=== PATIENT | male | born 1945 | race Caucasian/White ===

== ENCOUNTER → 2018-11-16 16:52 | Outpatient (CLI) | payer MEDICARE, OTHER, SELFPAY ==
[2018-11-16 18:07] LABS: BUN Creatinine Ratio 14.6 (6-22); Blood Urea Nitrogen 19 mg/dL (9-20); Calcium 9.9 mg/dL (8.4-10.2); Carbon Dioxide 27 mmol/L (22-32); Chloride 96 mmol/L (98-107); Estimated Glomerular Filt Rate 54.1 mL/min (>60); Glucose 94 mg/dL (80-110); HEMOLYSIS 31 (0-50); Magnesium 1.7 mg/dL (1.6-2.3); Potassium 5.1 mmol/L (3.4-5.1); Sodium 133 mmol/L (137-145)
== END ==
PROVIDERS: PCP Student in an Organized Health Care Education/Training Program; Visit Provider Student in an Organized Health Care Education/Training Program
DX: I10 Essential (primary) hypertension (principal); R25.2 Cramp and spasm; M79.2 Neuralgia and neuritis, unspecified
CPT/HCPCS: 36415; 80048; 83735

== ENCOUNTER → 2019-02-28 10:39 | Outpatient (CLI) | payer MEDICARE, OTHER, SELFPAY ==
--- NOTE | 2019-02-28 | DI.US.S_ITS ---
PROCEDURE: US SOFT TISSUE HEAD AND NECK INDICATIONS: LT CLAVICLE DEFORMITY TECHNIQUE: Real-time scanning was performed of the neck region as it intersects with the medial clavicular area on the left, with image documentation. COMPARISON: [facility], CR, XR SHOULDER 2+ VIEWS RIGHT, 12/13/2018, 9:55. [facility], CR, XR CHEST 1 VIEW, 01/31/2019, 16:20. FINDINGS: The soft tissues at the sternoclavicular joint on the left are more prominent than on the right, sharply demarcated. Presumably this represents inflammatory/degenerative change. IMPRESSION: Please correlate clinically for whether contrast enhanced MR scanning is warranted given the finding of asymmetry in the soft tissues at the sternoclavicular joints, greater on the left than the right. As noted, this most likely is inflammatory/degenerative in origin. Dictated by: Elijah Baker M.D. on 02/28/2019 at 15:20 Approved by: Elijah Baker M.D. on 02/28/2019 at 15:22
== END ==
PROVIDERS: PCP Student in an Organized Health Care Education/Training Program; Visit Provider Student in an Organized Health Care Education/Training Program
DX: M95.8 Other specified acquired deformities of musculoskeletal system (principal)
CPT/HCPCS: 76536

== ENCOUNTER → 2019-08-01 08:18 | Outpatient (CLI) | payer MEDICARE, OTHER, SELFPAY ==
--- NOTE | 2019-08-01 09:41 | DI.CT.S_ITS ---
PROCEDURE: CT ABDOMEN PELVIS W CON INDICATIONS: Elevated Lipoprotein(a) TECHNIQUE: After the administration of oral and intravenous contrast, 5 mm thick sections acquired from the diaphragms to the symphysis. 5 mm thick coronal and sagittal reformats were performed. For radiation dose reduction, the following was used: automated exposure control, adjustment of mA and/or kV according to patient size. COMPARISON: None. FINDINGS: Image quality: Excellent. ABDOMEN: Lung bases: Lung bases are clear. Heart size is normal. Solid organs: Liver is normal in size and enhancement. Diffuse fatty infiltration of the liver. Gallbladder is normal. Biliary system is non-dilated. Pancreas enhances normally. Accessory pancreatic duct noted. Pancreatic duct is mildly dilated to 5 mm. Spleen is normal in size and enhancement. No adrenal nodules. Kidneys are normal in size and enhancement, without hydronephrosis. Bilateral renal cysts. Peritoneum and bowel: Stomach, small bowel, and colon loops are normal in caliber and wall thickness. No free fluid or air. Nodes and vessels: No retroperitoneal or mesenteric adenopathy. Aorta and inferior vena cava are normal in caliber. Scattered atherosclerotic calcifications involving the abdominal and pelvic vasculature. Miscellaneous: No ventral hernias. PELVIS: Genitourinary: There is thickening and slight irregularity of the anterior and lateral urinary bladder wall. Bladder wall is thickened to 8-9 mm. Prostate gland is enlarged measuring 4.8 x 5.2 x 4.7 cm. Miscellaneous: No inguinal adenopathy. Small fat containing left inguinal hernia. Bones: No suspicious bony lesions. No vertebral body compression fractures. Spine degenerative disc disease and facet arthropathy. IMPRESSION: 1. Mild pancreatic ductal dilatation up to 5 mm. Recommend gastroenterology consultation. 2. Hepatic steatosis. 3. Anterior and lateral urinary bladder wall thickening. Neoplastic process including urothelial carcinoma cannot be excluded. Recommend correlation with urinalysis data and neurology consultation. 4. Prostate gland hypertrophy. Dictated by: Leda Morales MD, PhD on 08/01/2019 at 10:05 Approved by: Leda Morales MD, PhD on 08/01/2019 at 10:19
== END ==
PROVIDERS: PCP Student in an Organized Health Care Education/Training Program; Referring Provider Student in an Organized Health Care Education/Training Program; Visit Provider Student in an Organized Health Care Education/Training Program
DX: E78.41 Elevated Lipoprotein(a) (principal); K86.89 Other specified diseases of pancreas; K76.0 Fatty (change of) liver, not elsewhere classified; N40.0 Benign prostatic hyperplasia without lower urinary tract symptoms
CPT/HCPCS: 74177; Q9967

== ENCOUNTER → 2019-08-19 07:34 | Outpatient (CLI) | payer MEDICARE, OTHER, SELFPAY ==
--- NOTE | 2019-08-19 07:37 | DI.MRI.S_ITS ---
PROCEDURE: MR ABDOMEN WO CON INDICATIONS: Diarrhea, unspecified TECHNIQUE: Coronal HASTE through the abdomen, axial 2-D FLASH in- and [id number], and breath-hold T2 FSE with fat saturation through the biliary system and pancreas. Oblique coronal and axial thin-slice HASTE, radial thick-slab HASTE centered on the extrahepatic bile ducts. Intravenous secretin: Not requested. COMPARISON: [facility], CT, CT ABDOMEN PELVIS W CON, 08/01/2019, 9:35. FINDINGS: Image quality: Excellent. Pancreas and biliary system: Intra- and extra-hepatic biliary ducts are non dilated. Pancreas is normal in morphology, without adjacent soft tissue edema. Pancreatic duct in the head measures 5 mm, (10/50). Suspect ansa pancreatica variant anatomy, (12/24). No intraluminal filling defect. Pancreatic duct in the body and tail is normal in appearance. No pancreatic mass or cystic lesion seen. Gallbladder is unremarkable. Other solid organs: Liver is normal in size. Hepatic steatosis. Probable small simple cyst in left lobe liver. Spleen is normal in size. No adrenal nodules. Both kidneys are normal in size, without hydronephrosis. Multiple small T2 hyperintense simple cysts bilaterally. Nodes and vessels: No retroperitoneal or mesenteric adenopathy by size criteria. Aorta and inferior vena cava are normal in size. Bowel and peritoneum: Unenhanced bowel loops are normal in caliber. No free fluid. Lung bases: No basal pleural effusions. Heart size is normal. Bones and soft tissues: No ventral hernias. Bone marrow is of normal overall signal. IMPRESSION: 1. No peripancreatic fluid collection. 2. 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 Pancreatic duct in the head is mildly prominent measuring 5 mm. 3. No intraluminal filling defect. 4. No biliary ductal dilatation. Dictated by: Jc Barros M.D. on 08/19/2019 at 10:34 Approved by: Jc Barros M.D. on 08/19/2019 at 10:49
== END ==
PROVIDERS: PCP Student in an Organized Health Care Education/Training Program; Referring Provider Internal Medicine; Visit Provider Internal Medicine
DX: R19.7 Diarrhea, unspecified; R93.3 Abnormal findings on diagnostic imaging of other parts of digestive tract; K76.0 Fatty (change of) liver, not elsewhere classified; N28.1 Cyst of kidney, acquired
CPT/HCPCS: 74181

== ENCOUNTER 2020-01-03 12:27 | Emergency (ER) | payer MEDICARE, OTHER, SELFPAY ==
[2020-01-03 12:31] VITALS: BP 179/89; PULSE 67; RESP 16; TEMP 37.2; O2SAT 97; BMI 23.3
--- NOTE | 2020-01-03 12:39 | ED_ITS ---
HPI - General Adult General Chief complaint: Urogenital-Male Stated complaint: BLEEDING FROM THE GROIN Time Seen by Provider: 01/03/20 12:29 Source: patient Mode of arrival: Ambulatory Limitations: no limitations History of Present Illness HPI narrative: Patient is a 74-year-old male who is here for a groin injury. Was reported by the patient that he was carrying a TV when it fell in hit him in his groin. He is on Plavix. He did have bleeding from the tip of the penis/urethra afterwards. He did put a cold compress on the area came into the emergency department for evaluation. Related Data Allergies Allergy/AdvReac Type Severity Reaction Status Date / Time No Known Drug Allergies Allergy Verified 01/03/20 12:34 Review of Systems Constitutional Constitutional: Denies fever(s) and Denies headache(s) ENT Ears, Nose, Mouth, and Throat: Denies headache(s) Cardiovascular Cardiovascular: Denies chest pain and Denies dyspnea Respiratory Respiratory: Denies dyspnea Gastrointestinal Gastrointestinal: Denies abdominal pain Genitourinary Genitourinary: Reports genital pain and Reports other (Blood at the tip of the penis) Musculoskeletal Musculoskeletal: Denies arthralgias and Denies myalgias Integumentary/Breasts Skin/Breast: Denies rash Neurologic Neurologic: Denies behavioral changes and Denies headache(s) Psychiatric Psychiatric: Denies behavioral changes Hematologic/Lymphatic Comments: On Plavix Allergic/Immunologic Allergic/Immunologic: Denies urticaria Patient History Medical History Chronic kidney disease (Acute) Coronary artery disease (Acute) Social History marital status: lives independently: Yes Exam Initial Vital Signs Initial Vital Signs: Vital Signs Temperature 98.9 F 01/03/20 12:31 Pulse Rate 67 01/03/20 12:31 Respiratory Rate 16 01/03/20 12:31 Blood Pressure 179/89 H 01/03/20 12:31 Pulse Oximetry 97 01/03/20 12:31 Const General: cooperative and comfortable Limitations: mental status not altered HENMT Head: normal to inspection and normocephalic GI Inspection: non-distended Palpation: soft External: circumcised Penis: normal penis Meatus: meatal discharge (Blown) Scrotum: scrotum normal, no ecchymosis and no scrotal swelling Testes: normal and no testicular tenderness Skin Lesions: no lesions Rashes: no rashes Neuro General: patient alert, patient awake and patient oriented x3 Extrem General: capillary refill normal Psych Appearance: grossly normal and well kempt Course Orders Ordered: ED Orders 01/03/20 12:44 Basic Metabolic Panel Stat Complete Blood Count AUTO DIFF Stat Partial Thromboplastin Time Stat Prothrombin Time INR Stat 01/03/20 15:50 Urinalysis and Microscopic Stat Urine Culture Stat 01/03/20 16:00 Consult to Urology Stat Vital Signs Vital signs: Vital Signs - 8 hr 01/03/20 12:31 01/03/20 16:14 Temperature 98.9 F Pulse Rate 67 76 Respiratory Rate 16 14 Blood Pressure 179/89 H 155/72 H Pulse Oximetry 97 99 Medical Decision Making Lab Data Lab results reviewed: Yes I reviewed the patient's lab results. Result diagrams: 01/03/20 12:44 01/03/20 12:44 Labs: Lab Results 01/03/20 01/03/20 01/03/20 Range/Units 12:44 12:44 12:44 WBC 5.6 (4.5-11.0) X10^3/uL RBC 4.39 L (4.5-5.9) X10^6/uL Hgb 13.8 (13.5-17.5) g/dL Hct 40.9 L (41-53) % MCV 93.2 (80-100) fL MCH 31.4 (26-34) PG MCHC 33.7 (30-36) % RDW 13.0 (11.6-14.8) % Plt Count 224 (150-400) X10^3/uL Neut % (Auto) 60.7 (50-75) % Lymph % (Auto) 24.4 L (25-40) % [place] % (Auto) 11.7 (3-14) % Eos % (Auto) 2.4 (2-4) % Baso % (Auto) 0.8 (0-2) % Neut # (Auto) 3400 (5786-3411) /uL Lymph # (Auto) 1400 (9428-7165) /uL [place] # (Auto) 700 (0-900) /uL Eos # (Auto) 100 (0-450) /uL Baso # (Auto) 0 (0-100) /uL PT 11.5 (10.1-12.7) SECONDS INR 1.0 (0.9-1.3) APTT 29 (26.4-36.2) SECONDS Sodium 138 (137-145) mmol/L Potassium 4.5 (3.4-5.1) mmol/L Chloride 102 (98-107) mmol/L Carbon Dioxide 33 H (22-32) mmol/L BUN 24 H (9-20) mg/dL Creatinine 1.25 (0.66-1.25) mg/dL Estimated GFR 56.5 L (>60) mL/min BUN/Creatinine Ratio 19.2 (6-22) Glucose 104 (80-110) mg/dL Calcium 9.3 (8.4-10.2) mg/dL Urine Color Urine Appearance Urine pH (4.5-8.0) Ur Specific Melvin (1.000-1.035) Urine Protein (Negative) Urine Glucose (UA) (Negative) g/dL Urine Ketones (NEGATIVE) Urine Occult Blood (Negative) Urine Nitrate (Negative) Urine Bilirubin (NEGATIVE) Urine Urobilinogen (0.2) E.U./dL Ur Leukocyte Esterase (NEGATIVE) Urine RBC (0-5/HPF) Urine WBC (0-5/HPF) Urine Bacteria (None) Ur Culture Indicated? 01/03/20 Range/Units 15:50 WBC (4.5-11.0) X10^3/uL RBC (4.5-5.9) X10^6/uL Hgb (13.5-17.5) g/dL Hct (41-53) % MCV (80-100) fL MCH (26-34) PG MCHC (30-36) % RDW (11.6-14.8) % Plt Count (150-400) X10^3/uL Neut % (Auto) (50-75) % Lymph % (Auto) (25-40) % [place] % (Auto) (3-14) % Eos % (Auto) (2-4) % Baso % (Auto) (0-2) % Neut # (Auto) (9795-4795) /uL Lymph # (Auto) (8303-9614) /uL [place] # (Auto) (0-900) /uL Eos # (Auto) (0-450) /uL Baso # (Auto) (0-100) /uL PT (10.1-12.7) SECONDS INR (0.9-1.3) APTT (26.4-36.2) SECONDS Sodium (137-145) mmol/L Potassium (3.4-5.1) mmol/L Chloride (98-107) mmol/L Carbon Dioxide (22-32) mmol/L BUN (9-20) mg/dL Creatinine (0.66-1.25) mg/dL Estimated GFR (>60) mL/min BUN/Creatinine Ratio (6-22) Glucose (80-110) mg/dL Calcium (8.4-10.2) mg/dL Urine Color Yellow Urine Appearance Sl cloudy Urine pH 7.0 (4.5-8.0) Ur Specific Melvin 1.015 (1.000-1.035) Urine Protein Trace H (Negative) Urine Glucose (UA) Negative (Negative) g/dL Urine Ketones Negative (NEGATIVE) Urine Occult Blood 3+ H (Negative) Urine Nitrate Negative (Negative) Urine Bilirubin Negative (NEGATIVE) Urine Urobilinogen 0.2 (0.2) E.U./dL Ur Leukocyte Esterase Negative (NEGATIVE) Urine RBC >100/hpf H (0-5/HPF) Urine WBC None seen (0-5/HPF) Urine Bacteria None seen (None) Ur Culture Indicated? Cult not indicated Imaging Data Cystogram: Radiologist's Impression: [address] [address] XRay Report Signed Patient: Mario Alcantar RMR#: [id number] : 6Acct:[id number] Age/Sex: 74 / MDate of Service: 01/03/20 Loc: ED Accession Number: [id number] Procedure: FL cystogram Ordering Provider: Chandan Barbosa D.O. PROCEDURE: FL CYSTOGRAM INDICATIONS: General injury, bleeding from meatus COMPARISON: None. FINDINGS: KUB: Preprocedural psychiatric social worker supervisor film demonstrates a normal bowel gas pattern. Roger catheter is positioned in distal penile portion of the urethra. No suspicious abdominal calcifications. Bony structures are unremarkable. Bladder: Contrast material is injected into the urethra in a retrograde fashion via Roger catheter positioned in the distal penile urethra. There is extravasation of contrast material in the bulbous portion of the urethra with contrast filling the corpus spongiosum bilaterally. Roger catheter was advanced under fluoroscopic guidance into the urinary bladder. Contrast material was instilled into the that bladder via the Roger catheter. The filled bladder appears normal in contour. Early images demonstrate mild bladder wall trabeculations. No vesicoureteral reflux or contrast extravasation. Postvoid: Postvoid imaging was not performed. IMPRESSION: 1. Bulbous urethral injury. 2. No evidence of urinary bladder injury. Dictated by: Leda Morales MD, PhD on 01/03/2020 at 15:25 Approved by: Leda Morales MD, PhD on 01/03/2020 at 15:28 [facility] Narrative Medical decision making narrative: Patient did have clear urine after placement of the Roger catheter. The RUG and cystogram is concerning for a urethral injury. A Roger catheter placement is confirmed with the cystogram. I did discuss the case with Dr. Lopez with Urology who stated that patient should be sent home with a Roger catheter in place and he will see the patient in the [facility] for follow-up. I discussed this with the patient. He was given instructions with regard to the Roger catheter. He is given return precautions. He expressed understanding and agreement. Discharge Plan Departure Patient Disposition: Home Clinical Impression: Injury of male urethra Discharge Date/Time: 01/03/20 16:16 Instructions: How to Care for Your Roger Catheter -- Male Activity Restrictions/Additional Instructions: Leave the Roger catheter and an care for at as directed. I did discuss her case with Dr. lopez with the Urology Department here at the hospital. You should be receiving a phone call from them for a follow-up visit however if you do not hear from them by tomorrow afternoon please contact them at [phone]. Return to the emergency department for any new or worsening symptoms Referrals: Nazanin Moreno MD [Primary Care Provider] -
[2020-01-03 12:50] LABS: Add Manual Diff / Slide Review NO; Basophils Absolute Auto 0 /uL (0-100); Basophils Percent Auto 0.8 % (0-2); Eosinophils Absolute Auto 100 /uL (0-450); Eosinophils Percent Auto 2.4 % (2-4); Hematocrit 40.9 % (41-53); Hemoglobin 13.8 g/dL (13.5-17.5); Lymphocytes Absolute Auto 1400 /uL (1100-4500); Lymphocytes Percent Auto 24.4 % (25-40); Mean Corpuscular HGB Conc 33.7 % (30-36); Mean Corpuscular Hemoglobin 31.4 PG (26-34); Mean Corpuscular Volume 93.2 fL (80-100); Monocytes Absolute Auto 700 /uL (0-900); Monocytes Percent Auto 11.7 % (3-14); Neutrophils Absolute Auto 3400 /uL (1500-7000); Neutrophils Percent Auto 60.7 % (50-75); Platelet Count 224 X10^3/uL (150-400); Red Blood Cell Count 4.39 X10^6/uL (4.5-5.9); White Blood Cell Count 5.6 X10^3/uL (4.5-11.0)
--- NOTE | 2020-01-03 12:53 | DI.RAD.S_ITS ---
PROCEDURE: FL CYSTOGRAM INDICATIONS: General injury, bleeding from meatus COMPARISON: None. FINDINGS: KUB: Preprocedural bulb weeder film demonstrates a normal bowel gas pattern. Roger catheter is positioned in distal penile portion of the urethra. No suspicious abdominal calcifications. Bony structures are unremarkable. Bladder: Contrast material is injected into the urethra in a retrograde fashion via Roger catheter positioned in the distal penile urethra. There is extravasation of contrast material in the bulbous portion of the urethra with contrast filling the corpus spongiosum bilaterally. Roger catheter was advanced under fluoroscopic guidance into the urinary bladder. Contrast material was instilled into the that bladder via the Roger catheter. The filled bladder appears normal in contour. Early images demonstrate mild bladder wall trabeculations. No vesicoureteral reflux or contrast extravasation. Postvoid: Postvoid imaging was not performed. IMPRESSION: 1. Bulbous urethral injury. 2. No evidence of urinary bladder injury. Dictated by: Leda Morales MD, PhD on 01/03/2020 at 15:25 Approved by: Leda Morales MD, PhD on 01/03/2020 at 15:28
[2020-01-03 12:56] LABS: Prothrombin Time 11.5 SECONDS (10.1-12.7)
[2020-01-03 12:59] LABS: PTT Partial Thromboplastin Tim 29 SECONDS (26.4-36.2)
[2020-01-03 13:02] LABS: BUN Creatinine Ratio 19.2 (6-22); Blood Urea Nitrogen 24 mg/dL (9-20); Calcium 9.3 mg/dL (8.4-10.2); Carbon Dioxide 33 mmol/L (22-32); Chloride 102 mmol/L (98-107); Estimated Glomerular Filt Rate 56.5 mL/min (>60); Glucose 104 mg/dL (80-110); HEMOLYSIS < 15 (0-50); Potassium 4.5 mmol/L (3.4-5.1); Sodium 138 mmol/L (137-145)
--- NOTE | 2020-01-03 13:55 | PC.NURSE ---
cystogram performed in flouroscopy, dye injected through meatus via small catheter placed by radiology.
[2020-01-03 15:58] LABS: Bacteria Urine None Seen; WBC Urine None Seen (0-5/HPF)
[2020-01-03 16:00] LABS: Appearance Urine UA SL CLOUDY; Bilirubin Urine UA NEGATIVE (NEGATIVE); Color Urine UA YELLOW; Glucose Urine UA NEGATIVE (Negative); Ketones Urine UA NEGATIVE (NEGATIVE); Leukocyte Esterase Urine UA NEGATIVE (NEGATIVE); Nitrite Urine UA NEGATIVE (Negative); Occult Blood Urine UA 3+ (Negative); Protein Urine UA TRACE (Negative); Specific Gravity Urine UA 1.015 (1.000-1.035); Urobilinogen Urine UA 0.2 E.U./dL (0.2)
[2020-01-03 16:11] LABS: Culture Indicated Urine Cult Not Indicated; RBC Urine >100/HPF (0-5/HPF)
[2020-01-03 16:14] VITALS: BP 155/72; PULSE 76; RESP 14; O2SAT 99
--- NOTE | 2020-01-03 16:16 | PC.NURSE ---
leg bag placed on catheter. Sifuentes care explained to patient and patient verbalized understanding of sifuentes care instructions.
== END 2020-01-03 16:16 | disposition home or self-care (01) ==
PROVIDERS: Emergency Provider Emergency Medicine; PCP Student in an Organized Health Care Education/Training Program
DX: S37.30XA Unspecified injury of urethra, initial encounter (principal); W22.8XXA Striking against or struck by other objects, initial encounter; Z79.01 Long term (current) use of anticoagulants
CPT/HCPCS: 36415; 74430; 80048; 81001; 85025; 85610; 85730; 87086; 99284

== ENCOUNTER → 2020-04-06 15:07 | Outpatient (CLI) | payer MEDICARE, OTHER, SELFPAY | PROVIDERS: PCP Student in an Organized Health Care Education/Training Program; Referring Provider Specialist; Visit Provider Specialist | DX: R97.20 Elevated prostate specific antigen [PSA] (principal) | CPT/HCPCS: 36415; 84153 ==

== ENCOUNTER → 2020-05-08 16:36 | Outpatient (CLI) | payer MEDICARE, OTHER, SELFPAY ==
[2020-05-08 18:15] LABS: Thyroid Stimulating Hormone 1.18 uIU/mL (0.47-4.68)
== END ==
PROVIDERS: PCP Student in an Organized Health Care Education/Training Program; Referring Provider Student in an Organized Health Care Education/Training Program; Visit Provider Student in an Organized Health Care Education/Training Program
DX: E03.9 Hypothyroidism, unspecified (principal)
CPT/HCPCS: 36415; 84443

== ENCOUNTER → 2020-07-04 13:47 | Outpatient (CLI) | payer MEDICARE, OTHER, SELFPAY ==
[2020-07-04 15:53] LABS: Prostate Specific Antigen 4.29 ng/mL (0.10-4.00)
== END ==
PROVIDERS: PCP Student in an Organized Health Care Education/Training Program; Referring Provider Specialist; Visit Provider Specialist
DX: R97.20 Elevated prostate specific antigen [PSA] (principal)
CPT/HCPCS: 36415; 84153

== ENCOUNTER → 2020-08-30 09:28 | Outpatient (CLI) | payer MEDICARE, OTHER, SELFPAY ==
--- NOTE | 2020-08-30 09:30 | DI.MRI.S_ITS ---
PROCEDURE: MR ABDOMEN WO CON INDICATIONS: Abnormal findings on diagnostic imaging TECHNIQUE: Coronal HASTE through the abdomen, axial 2-D FLASH in- and [id number], and breath-hold T2 FSE with fat saturation through the biliary system and pancreas. Oblique coronal and axial thin-slice HASTE, radial thick-slab HASTE centered on the extrahepatic bile ducts. Intravenous secretin: Not requested. COMPARISON: [facility], MR, MR ABDOMEN WO CON, 08/19/2019, 7:53. FINDINGS: Image quality: Excellent. Pancreas and biliary system: Intra- and extra-hepatic biliary ducts are non dilated. Pancreas is normal in morphology, without adjacent soft tissue edema. The pancreatic head duct caliber is 3 mm, normal. There is no visualized evidence of a pancreatic duct morphologic anomaly at this time Pancreatic duct is normal in caliber, without developmental anomalies. Gallbladder appears normal. Other solid organs: Liver is normal in size. Several scattered hepatic cysts are again seen. Spleen is normal in size. No adrenal nodules. Both kidneys are normal in size, without hydronephrosis. Nodes and vessels: No retroperitoneal or mesenteric adenopathy by size criteria. Aorta and inferior vena cava are normal in size. Bowel and peritoneum: Unenhanced bowel loops are normal in caliber. No free fluid. Lung bases: No basal pleural effusions. Heart size is normal. Bones and soft tissues: No ventral hernias. Bone marrow is of normal overall signal. IMPRESSION: No pancreatic inflammation is seen. No common duct or pancreatic duct calculus or mass is identified. The current caliber of the main pancreatic duct at the pancreatic head is 3 mm, normal. A morphologic anomaly of the pancreatic duct in the pancreatic head and neck region is not found. Dictated by: Elijah Baker M.D. on 08/30/2020 at 13:53 Approved by: Elijah Baker M.D. on 08/30/2020 at 15:27
== END ==
PROVIDERS: PCP Student in an Organized Health Care Education/Training Program; Referring Provider Internal Medicine; Visit Provider Internal Medicine
DX: R93.89 Abnormal findings on diagnostic imaging of other specified body structures (principal)
CPT/HCPCS: 74181

== ENCOUNTER → 2021-01-15 10:36 | Outpatient (CLI) | payer MEDICARE, OTHER, SELFPAY ==
[2021-01-15 13:54] LABS: Prostate Specific Antigen 5.59 ng/mL (0.10-4.00)
== END ==
PROVIDERS: PCP Student in an Organized Health Care Education/Training Program; Referring Provider Specialist; Visit Provider Specialist
DX: N40.1 Benign prostatic hyperplasia with lower urinary tract symptoms (principal); N13.8 Other obstructive and reflux uropathy; R97.20 Elevated prostate specific antigen [PSA]
CPT/HCPCS: 36415; 84153

== ENCOUNTER → 2021-06-13 08:21 | Outpatient (CLI) | payer MEDICARE, OTHER, SELFPAY ==
[2021-06-13 11:05] LABS: Prostate Specific Antigen 7.16 ng/mL (0.10-4.00)
== END ==
PROVIDERS: PCP Student in an Organized Health Care Education/Training Program; Referring Provider Specialist; Visit Provider Specialist
DX: R97.20 Elevated prostate specific antigen [PSA] (principal)
CPT/HCPCS: 36415; 84153

== ENCOUNTER → 2021-07-03 16:44 | Outpatient (CLI) | payer MEDICARE, OTHER, SELFPAY ==
--- NOTE | 2021-07-03 16:47 | DI.MRI.S_ITS ---
PROCEDURE: MR PELIS WO/W CON INDICATIONS: BPH TECHNIQUE: Coronal HASTE, axial T1 FSE with fat saturation, 3-plane nonbreath-hold T2 FSE. After the administration of contrast, dynamic axial, delayed axial and coronal VIBE or 2-D FLASH with fat saturation through the pelvis. Optional diffusion weighted imaging and ADC may be performed. COMPARISON: None. FINDINGS: Image quality: Diffusion weighted and dynamic contrast enhanced images are diagnostic. Prostate: Gland size is 4.9 x 5.1 x 5.2 cm; ellipsoid gland volume is 67.6 mL. Lesion size(s): Lesion 1: 1.2 cm in transverse diameter. Lesion 2: 0.9 cm in transverse diameter Lesion 3: 1.6 cm in AP diameter Lesion 4: 1.2 cm in AP diameter Lesion location(s) (sector): Lesion 1: Left mid transition zone near the base Lesion 2: Right central to peripheral zone at the base Lesion 3: Left lateral transition zone at the apex. Lesion 4: Right anterior transition zone at the apex Lesion description: Lesion 1: Linear area with irregular margins. Lesion 2: Irregular shape, indistinct margin, questionable extension to the right seminal vesicle. Lesion 3: Lentiform shape, indistinct margins Lesion 4: Ovoid, partially circumscribed, partially indistinct margins T2 weighted imaging (T2WI) morphology score: Lesion 1: Four Lesion 2: Three Lesion 3: Two Lesion 4: Two Diffusion weighted imaging (DWI) morphology score: Lesion 1: Four Lesion 2: Three Lesion 3: Three Lesion 4: Three Dynamic contrast enhancement (DCE): Lesion 1: Present Lesion 2: Present Lesion 3: Present Lesion 4: Present Lesion PI-RADS score: Lesion 1: PI-RADS four Lesion 2: PI-RADS four Lesion 3: PI-RADS two Lesion 4: PI-RADS two Genitourinary system: Bladder wall thickness is diffusely increased.. Distal ureters are non distended. Bowel and peritoneum: No pathologic free pelvic fluid. Inferior colon and small bowel loops are normal in caliber. Nodes and vessels: No pelvic or inguinal adenopathy by size criteria. Iliac vessels are normal in caliber. Soft tissues: Very small fat containing left inguinal hernia. Bones: Marrow demonstrates normal overall signal, without lesions to suggest metastases. IMPRESSION: 1. There are two PI-RADS four lesions within the prostate gland near the base. The right-sided lesion probably involves the central zone in May potentially involve seminal vesicles. 2. Morphology of early BPH nodularity with some preservation of peripheral zone. 3. No pelvic adenopathy. 4. Very small fat containing left inguinal hernia. Dictated by: Amy Ni M.D. on 07/04/2021 at 10:44 Approved by: Amy Ni M.D. on 07/04/2021 at 11:24
== END ==
PROVIDERS: PCP Student in an Organized Health Care Education/Training Program; Referring Provider Specialist; Visit Provider Specialist
DX: N40.1 Benign prostatic hyperplasia with lower urinary tract symptoms (principal); N13.8 Other obstructive and reflux uropathy; N42.9 Disorder of prostate, unspecified
CPT/HCPCS: 72197; A9579

== ENCOUNTER → 2021-07-04 11:01 | Outpatient (CLI) | payer MEDICARE, OTHER, SELFPAY ==
[2021-07-04 13:07] LABS: Add Manual Diff / Slide Review NO; Basophils Absolute Auto 0 /uL (0-100); Basophils Percent Auto 0.7 % (0-2); Eosinophils Absolute Auto 100 /uL (0-450); Hematocrit 43.7 % (41-53); Hemoglobin 14.8 g/dL (13.5-17.5); Lymphocytes Absolute Auto 1300 /uL (1100-4500); Lymphocytes Percent Auto 21.3 % (25-40); Mean Corpuscular HGB Conc 33.8 % (30-36); Mean Corpuscular Hemoglobin 31.3 PG (26-34); Mean Corpuscular Volume 92.6 fL (80-100); Monocytes Absolute Auto 900 /uL (0-900); Monocytes Percent Auto 15.4 % (3-14); Neutrophils Absolute Auto 3700 /uL (1500-7000); Neutrophils Percent Auto 61.6 % (50-75); Platelet Count 339 X10^3/uL (150-400); Red Blood Cell Count 4.72 X10^6/uL (4.5-5.9); Red Cell Distribution Width 13.3 % (11.6-14.8); White Blood Cell Count 6.1 X10^3/uL (4.5-11.0)
[2021-07-04 13:25] LABS: BUN Creatinine Ratio 11.4 (6-22); Blood Urea Nitrogen 29 mg/dL (9-20); Calcium 10.2 mg/dL (8.4-10.2); Carbon Dioxide 28 mmol/L (22-32); Chloride 99 mmol/L (98-107); Cholesterol 139 mg/dL (140-199); Estimated Glomerular Filt Rate 25 mL/min (>60); Glucose 94 mg/dL (80-110); HDL Cholesterol 42 mg/dL (40-60); HEMOLYSIS < 15 (0-50); LDL Cholesterol Calculated 75 mg/dL (<100); Sodium 139 mmol/L (137-145); Triglycerides 112 mg/dL (35-150)
[2021-07-08 15:44] LABS: Gabapentin 8.4 ug/mL (4.0-16.0)
== END ==
PROVIDERS: Internal Medicine Cardiovascular Disease; PCP Student in an Organized Health Care Education/Training Program; Referring Provider Specialist; Visit Provider Specialist
DX: E78.5 Hyperlipidemia, unspecified (principal); G50.1 Atypical facial pain
CPT/HCPCS: 36415; 80048; 80061; 80171; 85025

== ENCOUNTER → 2021-07-18 13:19 | Outpatient (CLI) | payer MEDICARE, OTHER, SELFPAY ==
[2021-07-18 15:35] LABS: Hematocrit 36.7 % (41-53); Hemoglobin 12.9 g/dL (13.5-17.5); Mean Corpuscular HGB Conc 35.1 % (30-36); Mean Corpuscular Hemoglobin 32.2 PG (26-34); Mean Corpuscular Volume 91.7 fL (80-100); Platelet Count 241 X10^3/uL (150-400); Red Cell Distribution Width 13.3 % (11.6-14.8); White Blood Cell Count 8.1 X10^3/uL (4.5-11.0)
[2021-07-18 15:46] LABS: Alanine Aminotransferase 46 IU/L (<50); Albumin 3.8 g/dL (3.5-5.0); Albumin Globulin Ratio 1.5 (1.0-2.8); Alkaline Phosphatase 102 U/L (38-126); Aspartate Aminotransferase 47 IU/L (17-59); BUN Creatinine Ratio 14.1 (6-22); Bilirubin Total 0.5 mg/dL (0.2-1.3); Blood Urea Nitrogen 22 mg/dL (9-20); Calcium 8.9 mg/dL (8.4-10.2); Carbon Dioxide 29 mmol/L (22-32); Chloride 99 mmol/L (98-107); Cholesterol 122 mg/dL (140-199); Estimated Glomerular Filt Rate 46 mL/min (>60); Globulin 2.6 g/dL (1.7-4.1); Glucose 92 mg/dL (80-110); HDL Cholesterol 45 mg/dL (40-60); HEMOLYSIS < 15 (0-50); LDL Cholesterol Calculated 50 mg/dL (<100); Magnesium 1.8 mg/dL (1.6-2.3); Potassium 4.1 mmol/L (3.4-5.1); Sodium 134 mmol/L (137-145); Total Protein 6.4 g/dL (6.3-8.2); Triglycerides 136 mg/dL (35-150)
[2021-07-18 15:57] LABS: LDL Cholesterol Direct 57 mg/dL (<100)
[2021-07-18 16:15] LABS: Prostate Specific Antigen 4.89 ng/mL (0.10-4.00)
[2021-07-18 16:50] LABS: TSH w/ Reflex to FT4 0.08 uIU/mL (0.47-4.68)
[2021-07-18 17:16] LABS: Free T4, Direct Thyroxine 1.42 ng/dL (0.78-2.19)
== END ==
PROVIDERS: Specialist; PCP Student in an Organized Health Care Education/Training Program; Referring Provider Student in an Organized Health Care Education/Training Program; Visit Provider Student in an Organized Health Care Education/Training Program
DX: N18.31 Chronic kidney disease, stage 3a (principal); E78.5 Hyperlipidemia, unspecified; I10 Essential (primary) hypertension; E03.9 Hypothyroidism, unspecified; Z00.00 Encounter for general adult medical examination without abnormal findings; R97.20 Elevated prostate specific antigen [PSA]
CPT/HCPCS: 36415; 80053; 80061; 83721; 83735; 84153; 84439; 84443; 85025; 85027

== ENCOUNTER 2021-08-13 15:27 | Emergency (ER) | payer MEDICARE, OTHER, SELFPAY ==
[2021-08-13] VITALS (18 sets, daily range): BP systolic 103–207; BP diastolic 56–111; PULSE 61–90; RESP 12–26; O2SAT 89–98
[2021-08-13] MEDS: diphenhydrAMINE 50 MG/ML VIAL (15:30)
[2021-08-13] MEDS: methylPREDNISolone 125 MG/2 ML VIAL (15:30)
[2021-08-13] MEDS: EPINEPHrine 1 MG/ML (15:30)
--- NOTE | 2021-08-13 16:31 | PC.NURSE ---
pt was having airway swelling after being stung by a bee.
[2021-08-13] MEDS: SODIUM CHLORIDE 0.9% 1,000 ML 1000 ML IV (16:36)
[2021-08-13] MEDS: FAMOTIDINE 20 MG/2 ML VIAL IV (16:36)
--- NOTE | 2021-08-13 16:40 | ED.ALLEREA ---
HPI - Allergic Reaction <Tayler Hilton MD - Last Filed: 08/23/21 19:12> General Chief complaint: Allergic Reaction Stated complaint: STUNG BY YELLOWJACKET THROAT IS CLOSING Time Seen by Provider: 08/13/21 15:33 Source: patient Mode of arrival: Ambulatory History of Present Illness HPI narrative: 76-year-old gentleman with a history of coronary artery disease, hypertension, hypothyroidism, peripheral neuropathy was stung by a yellow jacket on the tip of his left ear this afternoon and within 2 hours was having significant tightening of his throat, difficulty breathing and feeling the symptoms were significantly worsening. Thinks his last episode of being stung was 40-50 years ago and at that time apparently had stepped into a nest and had multiple stings over his lower extremities. He has never had an allergic reaction such as this previously. He is not having any rash and does not complain of lip or tongue swelling. He has not recently been ill with fevers, cough, chills, vomiting diarrhea or abdominal pain. He currently is not complaining of chest pain or palpitations he is noting chest tightness and feels that his throat is closing. He is able to speak in full sentences and is completely cognitively appropriate at this time. Related Data Home Medications Medication Instructions Recorded Confirmed amlodipine 5 mg tablet 5 mg PO DAILY 01/09/20 08/06/21 aspirin 81 mg tablet,delayed 81 mg PO DAILY 01/09/20 08/06/21 release (Adult Aspirin Regimen) cholecalciferol (vitamin D3) 1,250 1,250 mcg PO QMONTH 01/09/20 08/06/21 mcg (50,000 unit) capsule coenzyme Q10 300 mg capsule (Co 300 mg PO DAILY 01/09/20 08/06/21 Q-10) diphenoxylate-atropine 2.5 1 tab PO DAILY 01/09/20 08/06/21 mg-0.025 mg tablet (Lomotil) gabapentin 600 mg tablet 600 mg PO DAILY 01/09/20 08/06/21 magnesium oxide 400 mg PO DAILY 01/09/20 08/06/21 ikuyceow-qqt-pdgqm acid 300 1 tab PO DAILY 01/09/20 08/06/21 mcg-lycopene 600 mcg-lutein 300 mcg tablet (Centrum Silver Men) paroxetine HCl 25 mg 25 mg PO DAILY 01/09/20 08/06/21 tablet,extended release 24 hr rosuvastatin 40 mg tablet 40 mg PO DAILY 01/09/20 08/06/21 levothyroxine 25 mcg tablet 12.5 mcg PO .every other day 08/06/21 08/06/21 Previous Rx's Medication Instructions Recorded tamsulosin 0.4 mg capsule 0.4 mg PO BEDTIME #90 caps 04/12/20 epinephrine 0.3 mg/0.3 mL 0.3 mg (0.3 mL) IM Q5-15M PRN 08/13/21 injection, auto-injector anaphylaxis #2 ea prednisone 10 mg tablet 10 mg PO DAILY #5 tabs 08/13/21 ciprofloxacin HCl 500 mg tablet 500 mg PO BID #6 tabs 08/23/21 Allergies Allergy/AdvReac Type Severity Reaction Status Date / Time epinephrine Allergy Verified 08/06/21 10:45 Review of Systems <Tayler Hilton MD - Last Filed: 08/23/21 19:12> Review of Systems Narrative: Remainder of complete review of systems is otherwise unremarkable except for that included in the HPI. Patient History <Tayler Hilton MD - Last Filed: 08/23/21 19:12> Medical History Arthritis BPH w urinary obs/LUTS Chronic kidney disease Coronary artery disease Elevated PSA Heart attack HTN (hypertension) Neurological disease Skin cancer Surgical History H/O circumcision H/O prostate biopsy History of coronary artery stent placement History of liver biopsy Previous back surgery Family History Grandfather Cancer Social History marital status: number of children: 4 lives independently: Yes Smoking Status: Never smoker alcohol intake: current Smoking Status: Never smoker Exam <Tayler Hilton MD - Last Filed: 08/23/21 19:12> Initial Vital Signs Initial Vital Signs: Vital Signs Pulse Rate 82 08/13/21 15:37 Respiratory Rate 18 08/13/21 15:37 Pulse Oximetry 98 08/13/21 15:37 General: Pale, able to speak slightly hoarse alert and appropriate. Well-nourished well-developed HEENT: Moist mucous membranes, normal sclera with reactive pupils, no tongue or lip swelling appreciated. Tip of his left ear slightly erythematous at the site of yellow jacket sting Neck: No JVD, supple Respiratory: Lungs with no audible wheeze, full and symmetrical air movement he does appear to be working harder to breathe in continues to complain of swelling in his throat Cardiac: Regular rate and rhythm no murmurs no bruits Abdomen: Soft, nontender, good bowel tones, no flank pain Skin: Pale and dry, no rashes Neurologic: Grossly neurologically intact with no obvious asymmetries or abnormalities Extremities: No trauma, well perfused Psych: Cooperative, appropriate insight and affect <Sade Ortiz DO - Last Filed: 08/13/21 19:27> Initial Vital Signs Initial Vital Signs: Vital Signs Pulse Rate 82 08/13/21 15:37 Respiratory Rate 18 08/13/21 15:37 Pulse Oximetry 98 08/13/21 15:37 Course <Tayler Hilton MD - Last Filed: 08/23/21 19:12> Orders Ordered: Discontinued Medications Diphenhydramine HCl (Diphenhydramine 50 Mg/Ml Vial) 50 mg IV NOW ONE Stop: 08/13/21 15:34 Last Admin: 08/13/21 16:23 Dose: Not Given Documented By: CTS Epinephrine HCl (Epinephrine 1 Mg/Ml) 0.3 mg IM NOW ONE Stop: 08/13/21 15:34 Last Admin: 08/13/21 16:23 Dose: Not Given Documented By: CTS Famotidine (Famotidine 20 Mg/2 Ml Vial) 20 mg IV NOW JOYCE Last Admin: 08/13/21 16:36 Dose: 20 mg Documented By: RLS Sodium Chloride (Normal Saline 0.9%) 1,000 mls @ 1,000 mls/hr IV BOLUS ONE Stop: 08/13/21 16:32 Last Infusion: 08/13/21 17:38 Dose: 0 mls/hr Documented By: Admin: 08/13/21 16:36 Dose: 1,000 mls/hr Documented By: RLS Methylprednisolone (Methylprednisolone 125 Mg/2 Ml Vial) 125 mg IV NOW ONE Stop: 08/13/21 15:34 Last Admin: 08/13/21 16:23 Dose: Not Given Documented By: CTS Vital Signs Vital signs: Vital Signs - 8 hr 08/13/21 15:37 08/13/21 15:38 08/13/21 15:38 Pulse Rate 82 76 Respiratory Rate 18 23 Blood Pressure 185/111 H Pulse Oximetry 98 96 08/13/21 15:41 08/13/21 15:41 08/13/21 15:45 Pulse Rate 81 Respiratory Rate 25 H Blood Pressure 207/89 H 184/78 H Pulse Oximetry 97 08/13/21 15:45 08/13/21 16:00 08/13/21 16:00 Pulse Rate 90 72 Respiratory Rate 26 H 15 Blood Pressure 127/71 Pulse Oximetry 95 92 08/13/21 16:15 08/13/21 16:15 08/13/21 16:30 Pulse Rate 72 Respiratory Rate 15 Blood Pressure 129/64 118/65 Pulse Oximetry 92 08/13/21 16:30 08/13/21 16:45 08/13/21 16:45 Pulse Rate 77 71 Respiratory Rate 16 15 Blood Pressure 118/64 Pulse Oximetry 91 91 08/13/21 17:00 08/13/21 17:00 08/13/21 17:15 Pulse Rate 72 Respiratory Rate 14 Blood Pressure 103/65 114/58 L Pulse Oximetry 91 08/13/21 17:15 08/13/21 17:30 08/13/21 17:30 Pulse Rate 77 69 Respiratory Rate 13 13 Blood Pressure 108/58 L Pulse Oximetry 92 91 08/13/21 17:45 08/13/21 17:45 08/13/21 18:00 Pulse Rate 68 Respiratory Rate 14 Blood Pressure 113/67 115/68 Pulse Oximetry 89 L 08/13/21 18:00 08/13/21 18:15 08/13/21 18:15 Pulse Rate 66 64 Respiratory Rate 13 12 Blood Pressure 116/67 Pulse Oximetry 90 L 92 08/13/21 18:30 08/13/21 18:31 08/13/21 18:31 Pulse Rate 65 64 Respiratory Rate 15 13 Blood Pressure 125/56 L Pulse Oximetry 90 L 92 08/13/21 18:45 08/13/21 18:45 08/13/21 19:00 Pulse Rate 63 Respiratory Rate 13 Blood Pressure 109/58 L 110/66 Pulse Oximetry 93 08/13/21 19:00 Pulse Rate 61 Respiratory Rate 12 Blood Pressure Pulse Oximetry 91 <Sade Ortiz, DO - Last Filed: 08/13/21 19:27> Orders Ordered: Discontinued Medications Diphenhydramine HCl (Diphenhydramine 50 Mg/Ml Vial) 50 mg IV NOW ONE Stop: 08/13/21 15:34 Last Admin: 08/13/21 16:23 Dose: Not Given Documented By: CTS Epinephrine HCl (Epinephrine 1 Mg/Ml) 0.3 mg IM NOW ONE Stop: 08/13/21 15:34 Last Admin: 08/13/21 16:23 Dose: Not Given Documented By: CTS Famotidine (Famotidine 20 Mg/2 Ml Vial) 20 mg IV NOW JOYCE Last Admin: 08/13/21 16:36 Dose: 20 mg Documented By: NATALIIA Sodium Chloride (Normal Saline 0.9%) 1,000 mls @ 1,000 mls/hr IV BOLUS ONE Stop: 08/13/21 16:32 Last Infusion: 08/13/21 17:38 Dose: 0 mls/hr Documented By: Admin: 08/13/21 16:36 Dose: 1,000 mls/hr Documented By: NATALIIA Methylprednisolone (Methylprednisolone 125 Mg/2 Ml Vial) 125 mg IV NOW ONE Stop: 08/13/21 15:34 Last Admin: 08/13/21 16:23 Dose: Not Given Documented By: DONELL Vital Signs Vital signs: Vital Signs - 8 hr 08/13/21 15:37 08/13/21 15:38 08/13/21 15:38 Pulse Rate 82 76 Respiratory Rate 18 23 Blood Pressure 185/111 H Pulse Oximetry 98 96 08/13/21 15:41 08/13/21 15:41 08/13/21 15:45 Pulse Rate 81 Respiratory Rate 25 H Blood Pressure 207/89 H 184/78 H Pulse Oximetry 97 08/13/21 15:45 08/13/21 16:00 08/13/21 16:00 Pulse Rate 90 72 Respiratory Rate 26 H 15 Blood Pressure 127/71 Pulse Oximetry 95 92 08/13/21 16:15 08/13/21 16:15 08/13/21 16:30 Pulse Rate 72 Respiratory Rate 15 Blood Pressure 129/64 118/65 Pulse Oximetry 92 08/13/21 16:30 08/13/21 16:45 08/13/21 16:45 Pulse Rate 77 71 Respiratory Rate 16 15 Blood Pressure 118/64 Pulse Oximetry 91 91 08/13/21 17:00 08/13/21 17:00 08/13/21 17:15 Pulse Rate 72 Respiratory Rate 14 Blood Pressure 103/65 114/58 L Pulse Oximetry 91 08/13/21 17:15 08/13/21 17:30 08/13/21 17:30 Pulse Rate 77 69 Respiratory Rate 13 13 Blood Pressure 108/58 L Pulse Oximetry 92 91 08/13/21 17:45 08/13/21 17:45 08/13/21 18:00 Pulse Rate 68 Respiratory Rate 14 Blood Pressure 113/67 115/68 Pulse Oximetry 89 L 08/13/21 18:00 08/13/21 18:15 08/13/21 18:15 Pulse Rate 66 64 Respiratory Rate 13 12 Blood Pressure 116/67 Pulse Oximetry 90 L 92 08/13/21 18:30 08/13/21 18:31 08/13/21 18:31 Pulse Rate 65 64 Respiratory Rate 15 13 Blood Pressure 125/56 L Pulse Oximetry 90 L 92 08/13/21 18:45 08/13/21 18:45 08/13/21 19:00 Pulse Rate 63 Respiratory Rate 13 Blood Pressure 109/58 L 110/66 Pulse Oximetry 93 08/13/21 19:00 Pulse Rate 61 Respiratory Rate 12 Blood Pressure Pulse Oximetry 91 [facility] - Allergic Reaction <Tayler Hilton MD - Last Filed: 08/23/21 19:12> [facility] Narrative Medical decision making narrative: Patient with yellow jacket sting to the left ear but developing anaphylactic reaction. On arrival he is given 3 mg of subcu epinephrine, IV Solu-Medrol, Benadryl, Pepcid with fairly rapid improvement of symptoms. 445 symptoms continue to improve, not complaining of throat tightness, no wheezing appreciated, much better perfusion of his lips. Will continue to anticipate at least a 4 hour observation in the emergency department after the epinephrine and is given. <Sade Ortiz DO - Last Filed: 08/13/21 19:27> [facility] Narrative Medical decision making narrative: Patient with yellow jacket sting to the left ear but developing anaphylactic reaction. On arrival he is given 3 mg of subcu epinephrine, IV Solu-Medrol, Benadryl, Pepcid with fairly rapid improvement of symptoms. 445 symptoms continue to improve, not complaining of throat tightness, no wheezing appreciated, much better perfusion of his lips. Will continue to anticipate at least a 4 hour observation in the emergency department after the epinephrine and is given. Patient signed out to me by Dr. Hilton. Have seen evaluated patient myself. He has no respiratory distress overall feeling much better. He had a nice nap from Benadryl. Epinephrine prescription has been sent to local pharmacy. At this time no need for any further intervention. Critical Care Time <Tayler Hilton MD - Last Filed: 08/23/21 19:12> Critical Care Time Critical Care Time: Yes Total Critical Care Time: 33 Attestation: Critical care time is separate from other billable procedures. There is a high probability of a significant, sudden or life-threatening deterioration that requires my full and direct attention, intervention and personal management. This critical care time includes consultation with family and other consulting doctors, review of records, and interpretation of data from labs, EKGs and imaging as well as managements of anaphylaxis Discharge Plan Departure Patient Disposition: Home Clinical Impression: Anaphylaxis Instructions: DI for Anaphylaxis Activity Restrictions/Additional Instructions: Thank you for coming in today You did have an anaphylactic reaction to your yellow jacket sting today. Your given epinephrine, Solu-Medrol(a steroid), Benadryl and Pepcid along with fluids and observed in the emergency department for 4 hours. You have improved nicely. I am going to suggest that you take a small dose of steroid daily for the next 5 days to prevent recurrent symptoms. Because of your prostate history, [id number] antihistamines should most likely be avoided to avoid acute urinary retention. 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 If you find that you are getting worse or develop any new symptoms, please feel free to return to the emergency department for further evaluation. Prescriptions: New epinephrine 0.3 mg/0.3 mL auto-injector 0.3 mg IM Q5-15M PRN (Reason: anaphylaxis) Qty: 2 0RF Rx Instructions: do not exceed 3 doses per episode prednisone 10 mg tablet 10 mg PO DAILY Qty: 5 0RF No Action ciprofloxacin HCl 500 mg tablet 500 mg PO BID Qty: 6 0RF Rx Instructions: Start taking the morning of August 28, 2021 and continue taking until bottle is empty. Centrum Silver Men 300-600-300 mcg tablet 1 tab PO DAILY Co Q-10 300 mg capsule 300 mg PO DAILY cholecalciferol (vitamin D3) 1,250 mcg (50,000 unit) capsule 1,250 mcg PO QMONTH aspirin [Adult Aspirin Regimen] 81 mg tablet,delayed release (DR/EC) 81 mg PO DAILY amlodipine 5 mg tablet 5 mg PO DAILY paroxetine HCl 25 mg tablet extended release 24 hr 25 mg PO DAILY diphenoxylate-atropine [Lomotil] 2.5-0.025 mg tablet 1 tab PO DAILY gabapentin 600 mg tablet 600 mg PO DAILY magnesium oxide 400 mg magnesium capsule 400 mg PO DAILY rosuvastatin 40 mg tablet 40 mg PO DAILY levothyroxine 25 mcg tablet 12.5 mcg PO .every other day tamsulosin 0.4 mg capsule 0.4 mg PO BEDTIME Qty: 90 3RF Referrals: Nazanin Moreno MD [Primary Care Provider] - Visit Report Forms: Patient Portal/API
== END 2021-08-13 19:41 | disposition home or self-care (01) ==
PROVIDERS: Emergency Provider Emergency Medicine; PCP Student in an Organized Health Care Education/Training Program
DX: T63.441A Toxic effect of venom of bees, accidental (unintentional), initial encounter (principal); R60.9 Edema, unspecified
CPT/HCPCS: 36415; 96361; 96374; 96375; 99284; 99291; J0171; J1200; J2930

== ENCOUNTER → 2021-08-16 10:20 | Outpatient (CLI) | payer MEDICARE, OTHER, SELFPAY ==
[2021-08-16 10:54] LABS: Add Manual Diff / Slide Review NO; Basophils Absolute Auto 0 /uL (0-100); Basophils Percent Auto 0.5 % (0-2); Eosinophils Absolute Auto 100 /uL (0-450); Eosinophils Percent Auto 0.6 % (2-4); Hematocrit 38.6 % (41-53); Hemoglobin 13.2 g/dL (13.5-17.5); Lymphocytes Absolute Auto 2100 /uL (1100-4500); Mean Corpuscular HGB Conc 34.2 % (30-36); Mean Corpuscular Hemoglobin 32.2 PG (26-34); Mean Corpuscular Volume 94.1 fL (80-100); Monocytes Absolute Auto 800 /uL (0-900); Monocytes Percent Auto 9.6 % (3-14); Neutrophils Absolute Auto 5400 /uL (1500-7000); Neutrophils Percent Auto 64.3 % (50-75); Platelet Count 225 X10^3/uL (150-400); Red Cell Distribution Width 14.2 % (11.6-14.8); White Blood Cell Count 8.4 X10^3/uL (4.5-11.0)
[2021-08-16 12:13] LABS: Appearance Urine UA CLEAR; Bilirubin Urine UA NEGATIVE (NEGATIVE); Color Urine UA YELLOW; Glucose Urine UA NEGATIVE (Negative); Ketones Urine UA NEGATIVE (NEGATIVE); Leukocyte Esterase Urine UA NEGATIVE (NEGATIVE); Nitrite Urine UA NEGATIVE (Negative); Occult Blood Urine UA 1+ (Negative); Protein Urine UA 2+ (Negative); Specific Gravity Urine UA 1.015 (1.000-1.035); Urobilinogen Urine UA 0.2 E.U./dL (0.2)
[2021-08-16 12:41] LABS: Bacteria Urine None Seen; Culture Indicated Urine Cult Not Indicated; RBC Urine 0-1/HPF (0-5/HPF); Squamous Epithelial Cell Urine 0-1 /HPF (0-5/HPF); WBC Urine 0-1/HPF (0-5/HPF)
== END ==
PROVIDERS: PCP Student in an Organized Health Care Education/Training Program; Referring Provider Internal Medicine Nephrology; Visit Provider Internal Medicine Nephrology
DX: M54.50 Low back pain, unspecified (principal)
CPT/HCPCS: 36415; 81001; 85025

== ENCOUNTER → 2021-10-02 09:38 | Outpatient (CLI) | payer MEDICARE, OTHER, SELFPAY ==
[2021-10-02 11:27] LABS: Prostate Specific Antigen 7.45 ng/mL (0.10-4.00)
== END ==
PROVIDERS: PCP Family Medicine; Referring Provider Specialist; Visit Provider Specialist
DX: R97.20 Elevated prostate specific antigen [PSA] (principal)
CPT/HCPCS: 36415; 84153

== ENCOUNTER → 2021-11-21 15:58 | Outpatient (CLI) | payer MEDICARE, OTHER, SELFPAY ==
--- NOTE | 2021-11-21 | DI.RAD.S_ITS ---
PROCEDURE: XR FOOT LT MIN 3V INDICATIONS: lateral foot pain TECHNIQUE: 3 views of the foot were acquired. COMPARISON: None. FINDINGS: Bones: No fractures or dislocations. Well-defined plantar and dorsal calcaneal enthesophytes are seen. Mild left foot osteoarthritic changes are seen. No suspicious bony lesions. Soft tissues: No tibiotalar joint effusion. Achilles tendon appears normal. IMPRESSION: Normal alignment of left foot. No fracture or dislocation. Mild left foot joint osteoarthritis. Well-defined calcaneal enthesophytes. Dictated by: Del Melissa M.D. on 11/21/2021 at 17:07 Approved by: Del Melissa M.D. on 11/21/2021 at 17:07
== END ==
PROVIDERS: PCP Family Medicine; Referring Provider Family Medicine; Visit Provider Family Medicine
DX: M19.072 Primary osteoarthritis, left ankle and foot (principal); M77.32 Calcaneal spur, left foot; M79.672 Pain in left foot
CPT/HCPCS: 73630

== ENCOUNTER → 2021-11-22 14:11 | Outpatient (CLI) | payer MEDICARE, OTHER, SELFPAY | PROVIDERS: PCP Family Medicine; Referring Provider Specialist; Visit Provider Specialist | DX: R97.20 Elevated prostate specific antigen [PSA] (principal) | CPT/HCPCS: 36415; 84153; 84154 ==

== ENCOUNTER → 2022-05-26 14:44 | Outpatient (CLI) | payer MEDICARE, OTHER, SELFPAY ==
--- NOTE | 2022-05-26 | DI.RAD.S_ITS ---
PROCEDURE: XR CHEST 2V INDICATIONS: shortness of breath TECHNIQUE: 2 views of the chest were acquired. COMPARISON: None. FINDINGS: Surgical changes and devices: None. Lungs and pleura: Increased pulmonary markings and small right effusion. Mediastinum: Mediastinal contours are normal. Heart size is enlarged. Bones and chest wall: No suspicious bony abnormalities. Soft tissues appear unremarkable. IMPRESSION: Suspect mild pulmonary edema, given increased pulmonary markings and small right effusion. Dictated by: Ton Haro M.D. on 05/26/2022 at 16:36 Approved by: Ton Haro M.D. on 05/26/2022 at 16:37
[2022-05-26 16:35] LABS: Blood Urea Nitrogen 17 mg/dL (9-20); Carbon Dioxide 27 mmol/L (22-32); Chloride 104 mmol/L (98-107); Estimated Glomerular Filt Rate 56 mL/min (>60); Glucose 63 mg/dL (80-110); HEMOLYSIS < 15 (0-50); Sodium 141 mmol/L (137-145)
[2022-05-26 16:42] LABS: NT-proBNP (BNP-Adult 18+) 2020 pg/mL (<450)
== END ==
PROVIDERS: Specialist; PCP Family Medicine; Referring Provider Internal Medicine Cardiovascular Disease; Visit Provider Internal Medicine Cardiovascular Disease
DX: R06.02 Shortness of breath (principal); J90 Pleural effusion, not elsewhere classified; R97.20 Elevated prostate specific antigen [PSA]
CPT/HCPCS: 36415; 71046; 80048; 83880; 84153

== ENCOUNTER → 2022-06-11 12:17 | Outpatient (CLI) | payer MEDICARE, OTHER, SELFPAY ==
[2022-06-11 13:35] LABS: BUN Creatinine Ratio 16.1 (6-22); Blood Urea Nitrogen 22 mg/dL (9-20); Calcium 9.2 mg/dL (8.4-10.2); Carbon Dioxide 28 mmol/L (22-32); Chloride 103 mmol/L (98-107); Estimated Glomerular Filt Rate 53 mL/min (>60); Glucose 91 mg/dL (80-110); HEMOLYSIS < 15 (0-50); Potassium 5.1 mmol/L (3.4-5.1); Sodium 138 mmol/L (137-145)
[2022-06-11 13:45] LABS: NT-proBNP (BNP-Adult 18+) 996 pg/mL (<450)
== END ==
PROVIDERS: PCP Family Medicine; Referring Provider Internal Medicine Cardiovascular Disease; Visit Provider Internal Medicine Cardiovascular Disease
DX: R06.02 Shortness of breath (principal); I10 Essential (primary) hypertension
CPT/HCPCS: 36415; 80048; 83880

== ENCOUNTER → 2022-08-01 15:19 | Outpatient (CLI) | payer MEDICARE, OTHER, SELFPAY ==
[2022-08-01 15:47] LABS: Blood Urea Nitrogen 23 mg/dL (9-20); Calcium 9.4 mg/dL (8.4-10.2); Carbon Dioxide 32 mmol/L (22-32); Chloride 102 mmol/L (98-107); Estimated Glomerular Filt Rate 54 mL/min (>60); Glucose 101 mg/dL (80-110); HEMOLYSIS 16 (0-50); Potassium 5.3 mmol/L (3.4-5.1); Sodium 138 mmol/L (137-145)
[2022-08-01 15:56] LABS: NT-proBNP (BNP-Adult 18+) 1210 pg/mL (<450)
== END ==
PROVIDERS: PCP Family Medicine; Referring Provider Internal Medicine Cardiovascular Disease; Visit Provider Internal Medicine Cardiovascular Disease
DX: R06.02 Shortness of breath (principal); I10 Essential (primary) hypertension
CPT/HCPCS: 36415; 80048; 83880

== ENCOUNTER → 2022-08-11 14:17 | Outpatient (CLI) | payer MEDICARE, OTHER, SELFPAY ==
[2022-08-11 15:44] LABS: BUN Creatinine Ratio 21.2 (6-22); Blood Urea Nitrogen 33 mg/dL (9-20); Calcium 9.3 mg/dL (8.4-10.2); Carbon Dioxide 29 mmol/L (22-32); Chloride 97 mmol/L (98-107); Estimated Glomerular Filt Rate 45 mL/min (>60); Glucose 105 mg/dL (80-110); HEMOLYSIS < 15 (0-50); Potassium 5.3 mmol/L (3.4-5.1); Sodium 133 mmol/L (137-145)
== END ==
PROVIDERS: PCP Family Medicine; Referring Provider Internal Medicine Cardiovascular Disease; Visit Provider Internal Medicine Cardiovascular Disease
DX: N18.30 Chronic kidney disease, stage 3 unspecified (principal)
CPT/HCPCS: 36415; 80048

== ENCOUNTER → 2022-09-30 09:59 | Outpatient (CLI) | payer MEDICARE, OTHER, SELFPAY ==
--- NOTE | 2022-09-30 | DI.US.S_ITS ---
PROCEDURE: US SCROTUM INDICATIONS: PAIN AND SWELLING IN RIGHT TESTICLE TECHNIQUE: Real-time scanning was performed of the scrotum and testicles, with image documentation. Color and pulse Doppler interrogation was performed of both testicles. COMPARISON: None. FINDINGS: Right: Testicle is normal in size at 3.1 x 2.6 x 3.6 cm, and homogenous in echotexture. The epididymis appears enlarged and heterogeneous with increased vascularity on Doppler images. A hydrocele is present. No varicocele identified. Overlying scrotal skin is normal in thickness. Left: Testicle is normal in size at 3.0 x 2.3 x 2.6 cm, and homogeneous in echotexture. Epididymis is normal in overall size. 7 mm cyst at the epididymal tail, 6 mm epididymal head cyst. No varicocele. Small hydrocele. Overlying scrotal skin is normal in thickness. Doppler: Color and pulse Doppler demonstrate normal and symmetric arterial flow in both testicles. IMPRESSION: 1. Findings compatible with right epididymitis. 2. No evidence of testicular torsion. 3. Small bilateral hydroceles. Dictated by: Shadi Russell M.D. on 09/30/2022 at 12:39 Approved by: Shadi Russell M.D. on 09/30/2022 at 12:42
== END ==
PROVIDERS: PCP Family Medicine; Referring Provider Family Medicine; Visit Provider Family Medicine
DX: N50.811 Right testicular pain (principal); N50.89 Other specified disorders of the male genital organs; N43.3 Hydrocele, unspecified
CPT/HCPCS: 76870; 93976

== ENCOUNTER → 2022-11-18 15:22 | Outpatient (ROUT) | payer MEDICARE, OTHER, SELFPAY ==
[2022-11-18 16:29] LABS: Influenza A - CEPHEID Flu A NEGATIVE (NEGATIVE); Influenza B - CEPHEID Flu B NEGATIVE (NEGATIVE); Respiratory Syncytial Virus Negative (Negative)
[2022-11-18 16:37] LABS: COVID-19 CEPHEID 4-PLEX PCR Negative (Negative)
== END ==
PROVIDERS: PCP Family Medicine; Visit Provider Family Medicine
DX: J06.9 Acute upper respiratory infection, unspecified (principal)
CPT/HCPCS: 0241U

== ENCOUNTER → 2022-12-16 09:07 | Outpatient (CLI) | payer MEDICARE, OTHER, SELFPAY ==
[2022-12-16 12:28] LABS: Prostate Specific Antigen 5.73 ng/mL (0.10-4.00)
== END ==
PROVIDERS: PCP Family Medicine; Referring Provider Specialist; Visit Provider Specialist
DX: N40.1 Benign prostatic hyperplasia with lower urinary tract symptoms (principal); N13.8 Other obstructive and reflux uropathy; R97.20 Elevated prostate specific antigen [PSA]; Z87.438 Personal history of other diseases of male genital organs
CPT/HCPCS: 51798; 81002; 84153; 99214

== ENCOUNTER 2023-01-06 01:11 | Emergency (ER) | payer MEDICARE, OTHER, SELFPAY ==
[2023-01-06] VITALS (10 sets, daily range): BP systolic 150–204; BP diastolic 81–125; PULSE 63–80; RESP 17–23; TEMP 36; O2SAT 93–97; BMI 29.2
--- NOTE | 2023-01-06 01:21 | DI.CT.S_ITS ---
PROCEDURE: CT STROKE INDICATIONS: worst REHMAN of life, blurred vision TECHNIQUE: Noncontrast 4.5 mm thick angled axial sections acquired from the foramen magnum to the vertex, with coronal reformats. For radiation dose reduction, the following was used: automated exposure control, adjustment of mA and/or kV according to patient size. COMPARISON: None. FINDINGS: Image quality: Excellent. CSF spaces: Basal cisterns are patent. No extra-axial fluid collections. The ventricles are symmetric in size and shape. Brain: No intracranial bleeds or masses. There is cerebral volume loss for age, with resultant ventricular and sulcal prominence. There are periventricular and deep white matter chronic small vessel ischemic changes. There is intracranial internal carotid artery atherosclerosis. Skull and face: Calvarium and visualized facial bones appear intact, without suspicious lesions. Sinuses: Visualized sinuses and mastoids are clear. IMPRESSION: No acute intracranial pathology. Findings discussed with Dr. Hilton at 1:43 a.m. On 01/06/2023. This study fulfills neurological imaging criteria for inclusion or exclusion of acute stroke therapies based on available published neurological guidelines. Dictated by: Ton Haro M.D. on 01/06/2023 at 1:41 Approved by: Ton Haro M.D. on 01/06/2023 at 1:43
--- NOTE | 2023-01-06 01:21 | DI.CT.S_ITS ---
PROCEDURE: CT ANGIO HEAD AND NECK INDICATIONS: worst REHMAN of life, blurred vision TECHNIQUE: After the administration of intravenous contrast, 1 mm thick sections acquired from the aortic arch through the [place] of [place]. 3-dimensional ahmodze-yrdtmalff-lrcuqtsewa (MIP) and/or volume rendering reformats were acquired of the central intracranial vasculature and neck separately. For radiation dose reduction, the following was used: automated exposure control, adjustment of mA and/or kV according to patient size. COMPARISON: None. FINDINGS: Image quality: Diagnostic. BRAIN: CSF spaces: Ventricles are normal in size and shape. Basal cisterns are patent. No extra-axial fluid collections. Brain: No significant abnormality of the brain can be seen. Skull and face: Calvarium and facial bones appear intact, without suspicious lesions. Orbits appear normal. Sinuses: Sinuses and mastoids are clear. HEAD CT ANGIOGRAPHY: Anterior circulation: Intracranial internal carotid arteries are normal in size and flow. The flow within the paired anterior cerebral arteries is normal and symmetric. The flow within the middle cerebral arteries is normal and symmetric. The anterior communicating artery is seen. No aneurysms are seen. Posterior circulation: Visualized portions of the vertebral arteries demonstrate normal caliber, and join to form a normal appearing basilar artery. Flow within the posterior cerebral arteries is normal and symmetric. No aneurysms are seen. NECK CT ANGIOGRAPHY: Carotid system: The great vessels demonstrate a conventional anatomy as they arise from the aortic arch. The origins of the common carotid arteries appear patent. The common carotid arteries demonstrate normal caliber and courses. The bifurcation regions are both widely patent. The internal carotid arteries demonstrate normal calibers and courses. Posterior circulation: The origins of the vertebral arteries both appear widely patent. The more superior extracranial portions of both vertebral arteries also demonstrate normal courses and calibers. They join to form a normal appearing basilar artery. Soft tissues: Visualized neck soft tissues demonstrate no suspicious abnormalities. Bones: No suspicious bony lesions. Visualized cervical spine appears normally aligned. IMPRESSION: No large vessel occlusion. Any quantitative measurements of stenosis were performed using NASCET criteria. Dictated by: Ton Haro M.D. on 01/06/2023 at 1:52 Approved by: Ton Haro M.D. on 01/06/2023 at 1:55
--- NOTE | 2023-01-06 01:28 | PC.NURSE ---
pt states this does not feel like his typical migraine, last took bp med around 1999
[2023-01-06 01:36] LABS: Add Manual Diff / Slide Review NO; Basophils Absolute Auto 100 /uL (0-100); Eosinophils Absolute Auto 200 /uL (0-450); Eosinophils Percent Auto 4.4 % (2-4); Hematocrit 41.8 % (41-53); Hemoglobin 14.4 g/dL (13.5-17.5); Lymphocytes Absolute Auto 1300 /uL (1100-4500); Lymphocytes Percent Auto 24.2 % (25-40); Mean Corpuscular HGB Conc 34.5 % (30-36); Mean Corpuscular Hemoglobin 33.1 PG (26-34); Monocytes Absolute Auto 800 /uL (0-900); Monocytes Percent Auto 15.2 % (3-14); Neutrophils Absolute Auto 2900 /uL (1500-7000); Neutrophils Percent Auto 55.2 % (50-75); Platelet Count 247 X10^3/uL (150-400); Red Blood Cell Count 4.35 X10^6/uL (4.5-5.9); White Blood Cell Count 5.3 X10^3/uL (4.5-11.0)
[2023-01-06 01:44] LABS: INR 1.1 (0.9-1.3); Prothrombin Time 12.7 SECONDS (10.1-12.7)
[2023-01-06 01:46] LABS: PTT Partial Thromboplastin Tim 31 SECONDS (26-36)
[2023-01-06 01:47] LABS: Alanine Aminotransferase 35 IU/L (<50); Albumin Globulin Ratio 1.3 (1.0-2.8); Alkaline Phosphatase 110 U/L (38-126); Aspartate Aminotransferase 45 IU/L (17-59); BUN Creatinine Ratio 12.8 (6-22); Bilirubin Total 0.6 mg/dL (0.2-1.3); Blood Urea Nitrogen 23 mg/dL (9-20); Calcium 9.4 mg/dL (8.4-10.2); Carbon Dioxide 34 mmol/L (22-32); Chloride 97 mmol/L (98-107); Creatine Kinase 165 U/L (55-170); Estimated Glomerular Filt Rate 39 mL/min (>60); Ethanol (ETOH) < 10 mg/dL; Globulin 3.1 g/dL (1.7-4.1); Glucose 111 mg/dL (80-110); HEMOLYSIS 30 (0-50); Potassium 4.3 mmol/L (3.4-5.1); Sodium 135 mmol/L (137-145); Total Protein 7.1 g/dL (6.3-8.2)
[2023-01-06 01:59] LABS: Troponin I < 0.012 ng/mL (0.01-0.034)
--- NOTE | 2023-01-06 02:42 | ED.HA ---
HPI - Headache General Chief Complaint: Headache Stated Complaint: POSSIBLE STROKE Time Seen by Provider: 01/06/23 01:20 Mode of arrival: Ambulatory History of Present Illness HPI Narrative: 77-year-old gentleman with a history of hypothyroidism, hyperlipidemia, hypertension, reflux, BPH and a history of migraine presents with what he is concerned may be the worst headache of his life. He describes an abrupt onset of severe left temporal head pain. He notes that he had a partial visual migraine aura prior to this. He has been diagnosed with visual migraine but has never had associated pain with these headaches. He has not recently had any fever, cough, chills. No shortness of breath chest pain, palpitations, vomiting. The pain was significant enough that it did cause some nausea Related Data Home Medications Medication Instructions Recorded Confirmed coenzyme Q10 300 mg capsule (Co 300 mg PO DAILY 01/09/20 12/16/22 Q-10) magnesium oxide 400 mg PO DAILY 01/09/20 12/16/22 pzdyiwof-cn-heiyb 300 mcg-K 60 1 tab PO DAILY 01/09/20 06/04/22 mcg-lycop 600 mcg-lutein 300 mcg tablet (Centrum Silver Men) paroxetine HCl 25 mg 25 mg PO DAILY 01/09/20 12/16/22 tablet,extended release 24 hr rosuvastatin 40 mg tablet 40 mg PO DAILY 01/09/20 12/16/22 levothyroxine 25 mcg tablet 12.5 mcg PO .every other day 08/06/21 12/16/22 ezetimibe 10 mg tablet 10 mg PO DAILY 08/29/21 12/16/22 gabapentin 600 mg tablet 600 mg PO TID 08/29/21 12/16/22 metoprolol succinate 25 mg 25 mg PO DAILY 08/29/21 12/16/22 tablet,extended release 24 hr omeprazole 20 mg capsule,delayed 20 mg PO DAILY 08/29/21 12/16/22 release spironolactone 25 mg tablet 12.5 mg PO DAILY 06/04/22 12/16/22 Previous Rx's Medication Instructions Recorded tamsulosin 0.4 mg capsule 0.4 mg PO BEDTIME #90 caps 04/12/20 Allergies Allergy/AdvReac Type Severity Reaction Status Date / Time epinephrine Allergy Verified 06/04/22 09:48 Review of Systems Review of Systems Narrative: Pertinent positive and negative findings as per HPI Patient History Medical History Elevated PSA BPH w urinary obs/LUTS Arthritis Skin cancer Neurological disease Heart attack HTN (hypertension) Chronic kidney disease Coronary artery disease Surgical History H/O prostate biopsy History of coronary artery stent placement Previous back surgery History of liver biopsy H/O circumcision Family History Grandfather Cancer Social History marital status: number of children: 4 lives independently: Yes Smoking Status: Never smoker alcohol intake: current Smoking Status: Never smoker Exam Initial Vital Signs Initial Vital Signs: Vital Signs Temperature 96.8 F L 01/06/23 01:13 Pulse Rate 80 01/06/23 01:13 Respiratory Rate 18 01/06/23 01:13 Blood Pressure 204/125 H 01/06/23 01:13 Pulse Oximetry 97 01/06/23 01:13 Oxygen Delivery Method Room Air 01/06/23 01:13 General: Healthy, appearing much younger than stated age, in no acute distress. Able to give a complete and coherent history. Well-nourished well-developed HEENT: Moist mucous membranes, normal sclera with reactive pupils, extraocular eye movement is intact and nonpainful. He has no tenderness over his temporal arteries to palpation Neck: No JVD, supple Respiratory: Lungs are clear to auscultation, no wheezing no rales no rhonchi. Full and symmetrical air movement Cardiac: Regular rate and rhythm no murmurs no bruits Abdomen: Soft, nontender, good bowel tones, no flank pain Skin: Warm and dry, no rashes Neurologic: Grossly neurologically intact with no obvious asymmetries or abnormalities Extremities: No trauma, well perfused Psych: Cooperative, appropriate insight and affect Course Orders Ordered: ED Orders 01/06/23 01:[address] angio head and neck Stat Urinalysis and Microscopic Stat EKG-12 Lead Stat 01/06/23 01:25 Complete Blood Count AUTO DIFF Stat Comprehensive Metabolic Panel Stat Ethanol (ETOH) Stat PTT Partial Thromboplastin Alec Stat Prothrombin Time INR Stat Troponin & CK Cardiac Panel Stat Sodium Chloride (Normal Saline 0.9%) 1,000 mls @ 1,000 mls/hr IV BOLUS ONE Stop: 01/06/23 03:51 Last Admin: 01/06/23 03:05 Dose: 1,000 mls/hr Documented By: VERONIQUE Discontinued Medications Diphenhydramine HCl (Diphenhydramine 50 Mg/Ml Vial) 25 mg IV NOW ONE Stop: 01/06/23 02:53 Last Admin: 01/06/23 03:07 Dose: 25 mg Documented By: VERONIQUE Prochlorperazine (Prochlorperazine 10 Mg/2 Ml Vial) 10 mg IV NOW ONE Stop: 01/06/23 02:53 Last Admin: 01/06/23 03:05 Dose: 10 mg Documented By: VERONIQUE Vital Signs Vital signs: Vital Signs - 8 hr 01/06/23 01:13 01/06/23 01:48 01/06/23 01:50 Temperature 96.8 F L Pulse Rate 80 69 69 Respiratory Rate 18 23 21 Blood Pressure 204/125 H Pulse Oximetry 97 94 94 Oxygen Delivery Method Room Air 01/06/23 01:50 01/06/23 02:02 01/06/23 02:03 Temperature Pulse Rate 77 Respiratory Rate 23 Blood Pressure 179/98 H 175/83 H Pulse Oximetry 96 Oxygen Delivery Method 01/06/23 02:03 01/06/23 03:05 Temperature Pulse Rate 74 63 Respiratory Rate 17 Blood Pressure 150/81 H Pulse Oximetry 93 Oxygen Delivery Method MDM - Headache Lab Data 01/06/23 01:25 01/06/23 01:25 Labs: Lab Results 01/06/23 Range/Units 01:25 WBC 5.3 (4.5-11.0) X10^3/uL RBC 4.35 L (4.5-5.9) X10^6/uL Hgb 14.4 (13.5-17.5) g/dL Hct 41.8 (41-53) % MCV 96.0 (80-100) fL MCH 33.1 (26-34) PG MCHC 34.5 (30-36) % RDW 13.0 (11.6-14.8) % Plt Count 247 (150-400) X10^3/uL Neut % (Auto) 55.2 (50-75) % Lymph % (Auto) 24.2 L (25-40) % [place] % (Auto) 15.2 H (3-14) % Eos % (Auto) 4.4 H (2-4) % Baso % (Auto) 1.0 (0-2) % Neut # (Auto) 2900 (0762-8209) /uL Lymph # (Auto) 1300 (4194-8218) /uL [place] # (Auto) 800 (0-900) /uL Eos # (Auto) 200 (0-450) /uL Baso # (Auto) 100 (0-100) /uL PT 12.7 (10.1-12.7) SECONDS INR 1.1 (0.9-1.3) APTT 31 (26-36) SECONDS Sodium 135 L (137-145) mmol/L Potassium 4.3 (3.4-5.1) mmol/L Chloride 97 L (98-107) mmol/L Carbon Dioxide 34 H (22-32) mmol/L BUN 23 H (9-20) mg/dL Creatinine 1.79 H (0.66-1.25) mg/dL Estimated GFR 39 L (>60) mL/min BUN/Creatinine Ratio 12.8 (6-22) Glucose 111 H (80-110) mg/dL Calcium 9.4 (8.4-10.2) mg/dL Total Bilirubin 0.6 (0.2-1.3) mg/dL AST 45 (17-59) IU/L ALT 35 (<50) IU/L Alkaline Phosphatase 110 (38-126) U/L Total Creatine Kinase 165 (55-170) U/L Troponin I < 0.012 (0.01-0.034) ng/mL Total Protein 7.1 (6.3-8.2) g/dL Albumin 4.0 (3.5-5.0) g/dL Globulin 3.1 (1.7-4.1) g/dL Albumin/Globulin Ratio 1.3 (1.0-2.8) Ethyl Alcohol < 10 ( - 10) mg/dL Urine Dip Bedside Urine Glucose Negative Bedside Urine Bilirubin - Negative Bedside Urine Ketone - Negative Urine Specific [place] 1.010 Bedside Urine Occult Blood - Negative Bedside Urine pH 7.5 Bedside Urine Protein - Negative Bedside Urine Urobilinogen - Negative Bedside Urine Nitrite - Negative Bedside Urine Leukocytes - Negative Esterase MDM Narrative Medical decision making narrative: CC: Abrupt onset of ?worst headache of my life? Complicating co-morbidities: Coronary artery disease hypertension peripheral neuropathy Data collected from: patient, Social determinants of health that may influence the patients condition: Medical records reviewed: Previous ER and urology notes reviewed Differential considered: Intracranial hemorrhage, migraine headache, meningitis, viral syndrome, temporal arteritis Exam documented above, pertinent findings include: Mild left-sided head pain at this point. No vision changes persisting, no tenderness over the temporal arteries to palpation. Remainder of exam is entirely benign and he is completely neurologically intact Lab Test results independently reviewed as above. Pertinent findings: CBC is unremarkable Chemistries show slight increased to creatinine, mildly increased BUN Troponin is undetectable Independently reviewed EKG shows sinus rhythm with PVC. Normal axis. No acute ischemic changes Imaging studies independently reviewed: CT of the brain done with concern for acute bleed/stroke is independently reviewed with the radiologist in real-time and shows no acute findings CT angiogram of the head and neck did not show any acute vascular occlusions or large vessel occlusions Treatments: Fluids, Compazine, Benadryl. Due to kidney disease he is not supposed to use nonsteroidals so Toradol is not given. Re-evaluations: After medicines described above and Tylenol taking prior to arrival patient describes his headache pain as significantly improved and feels that he is ready for discharge Discussion: 77-year-old gentleman who presents with ?a worst headache of his life. Describes almost a thunderclap type presentation. He has a history of ocular migraine but does not typically get any pain associated with these. He notes that he did have a mild visual disturbance similar to a mild ocular migraine prior to the severe headache. There is no evidence for infection, intracranial bleed, stroke, temporal arteritis, masses or tumors, hypertensive crisis or alternate explanation that would require hospitalization or further workup at this time. All findings reviewed with the patient, pain is adequately controlled and he is safe for discharge home Discharge Plan Departure Patient Disposition: Home Clinical Impression: Headache Qualifiers: Headache type: unspecified Headache chronicity pattern: acute headache Instructions: DI for Migraine, DI for Headache Activity Restrictions/Additional Instructions: Thank you for coming in tonight Despite fact that you have ocular migraines, tonight you described her headache as the worst of your life and you have not had pain associated with prior ocular migraines. Your workup today did not show any bleeding, masses, tumors or blood vessel occlusions in your head. Your clinical exam does not suggest a stroke. Your blood pressure is coming down nicely as you are resting so I do not suspect that this is a hypertensive crisis. Lab work does not suggest infection or heart attack. Your kidney function is slightly worse than previously and I have given you a L of fluid. Along with the fluid you are given IV Compazine and Benadryl to help with the acute headache. I am not finding any evidence of life-threatening abnormalities, reason for additional imaging or hospitalization at this time. Prescriptions: No Action Centrum Silver Men 300-600-300 mcg tablet 1 tab PO DAILY Co Q-10 300 mg capsule 300 mg PO DAILY paroxetine HCl 25 mg tablet extended release 24 hr 25 mg PO DAILY magnesium oxide 400 mg magnesium capsule 400 mg PO DAILY rosuvastatin 40 mg tablet 40 mg PO DAILY levothyroxine 25 mcg tablet 12.5 mcg PO .every other day gabapentin 600 mg tablet 600 mg PO TID omeprazole 20 mg capsule,delayed release(DR/EC) 20 mg PO DAILY metoprolol succinate 25 mg tablet extended release 24 hr 25 mg PO DAILY ezetimibe 10 mg tablet 10 mg PO DAILY spironolactone 25 mg tablet 12.5 mg PO DAILY tamsulosin 0.4 mg capsule 0.4 mg PO BEDTIME Qty: 90 3RF Referrals: Aris Olivera MD [Primary Care Provider] - Stand Alone Forms: Patient Portal/API
[2023-01-06] MEDS: PROCHLORPERAZINE 10 MG/2 ML VIAL IV (03:05)
[2023-01-06] MEDS: SODIUM CHLORIDE 0.9% 1,000 ML 1000 ML IV (03:05)
[2023-01-06] MEDS: diphenhydrAMINE 50 MG/ML VIAL 25 MG IV (03:07)
== END 2023-01-06 04:04 | disposition home or self-care (01) ==
PROVIDERS: Emergency Provider Emergency Medicine; PCP Family Medicine
DX: R51.9 Headache, unspecified (principal); I49.3 Ventricular premature depolarization; I10 Essential (primary) hypertension; I25.10 Atherosclerotic heart disease of native coronary artery without angina pectoris
CPT/HCPCS: 36415; 70450; 70496; 70498; 80053; 80320; 81003; 82550; 84484; 85025; 85610; 85730; 93005; 93010; 96361; 96374; 96375; 99284; J0780; J1200; Q9967

== ENCOUNTER → 2023-06-04 13:38 | Outpatient (CLI) | payer MEDICARE, OTHER, SELFPAY ==
--- NOTE | 2023-06-04 13:41 | DI.ECHO.S_ITS ---
[facility]---------[facility] +---------+ : : [address] [address] : : : : [id number] : : : : Phone: [phone]+ Echocardiogram Report + + :Name: JUANA FLEMING Study Date: 06/04/2023 Height: 60 in : :[facility] ReadingLocation: Weight: 158 lb : : Gender: Male BSA: 1.7 m2 : :: 1945 Age: 78 yrs BP: 112/73 mmHg: :Reason For Study: DYSPNEA ON EXERTION : :Ordering Physician: GERMAN, : :AYAZ Performed By: Mary Beth Rodriguez : :Referring: AYAZ LIGHT : + + Interpretation Summary 1) Normal left ventricular thickness and size with low normal systolic function (EF 50-55%). 2) Basal inferior wall is akinetic. Basal to mid inferolateral wall and basal to mid anterolateral wall are hypokinetic. 3) Normal right ventricular size and function. 4) There is moderate mitral regurgitation. 5) The right ventricular systolic pressure is estimated to be at least 32 mmHg based on an estimated right atrial pressure of 3 mm Hg. 6) Compared to the Echo done 05/08/2022, mitral regurgitation severity has decreased from moderate-severe to moderate on this study. Procedure: A two-dimensional transthoracic echocardiogram with color flow and Doppler was performed. The study quality was technically adequate. Comparison is made with the echocardiogram of 05/08/2022. The patient was in atrial fibrillation with heart rates between 76-111 bpm during the exam. Left Ventricle: The left ventricle is normal in size and wall thickness. The ejection fraction is estimated to be 50-55%. Basal inferior wall is akinetic. Basal to mid inferolateral wall and basal to mid anterolateral wall are hypokinetic. Right Ventricle: The right ventricle is normal in size and function. Atria: The left atrium is moderately dilated. Right atrial size is normal. There is no Doppler evidence for an interatrial shunt. Mitral Valve: There is mild mitral annular calcification. There is moderate mitral regurgitation. There are multiple regurgitant jets present. Aortic Valve: The aortic valve is trileaflet. The aortic valve is slightly calcified. The aortic valve opens well. There is no aortic valve stenosis. No aortic regurgitation is present. Tricuspid Valve: The tricuspid valve is normal. There is mild tricuspid regurgitation. The right ventricular systolic pressure is estimated to be at least 32 mmHg based on an estimated right atrial pressure of 3 mm Hg. Pulmonic Valve: The pulmonic valve leaflets are thin and pliable; valve motion is normal. There is mild pulmonic regurgitation. Great Vessels: The aortic root is normal size. The dimensions of the ascending aorta are normal. The IVC is of normal diameter and collapses greater than 50% with a sniff. This suggests a low right atrial pressure of 3 mm Hg. Pericardium/ Pleura There is no pericardial effusion. There is no pleural effusion. MMode/2D Measurements & Calculations LVIDd: 4.5 cm LVOT diam: 2.0 cm LVIDs: 3.4 cm Ao root diam: 3.3 cm FS: 24.6 % asc Aorta Diam: 3.2 cm EPSS: 0.86 cm IVSd: 0.86 cm LVPWd: 0.60 cm LV castillo. diameter/BSA (cm/m^2): 2.7 LV sys. diameter/BSA (cm/m^2): 2.0 LA A2 area: 22.3 cm2 RA long axis: 4.6 cm LA A4 area: 21.1 cm2 RA area: 14.6 cm2 LA length (vol): 5.3 cm RA vol: 39.9 ml LA vol: 75.7 ml RA : 23.6 ml/m2 LA vol index: 44.8 ml/m2 IVC diam: 1.5 cm RVD1 (basal): 3.7 cm RVD2 (mid): 2.6 cm TAPSE: 2.1 cm Doppler Measurements & Calculations Ao V2 max: 120.5 cm/sec LVOT Max Ethan: 84.2 cm/sec Ao V2 mean: 92.3 cm/sec LV V1 max P.8 mmHg Ao max P.8 mmHg LV V1 VTI: 14.7 cm Ao mean P.6 mmHg ANTONIO(I,D): 2.0 cm2 Ao V2 VTI: 22.1 cm ANTONIO(V,D): 2.1 cm2 sev ratio: 0.67 ANTONIO indexed to BSA (cm^2/m^2): 1.2 MV E max ethan: 100.7 cm/sec TR max ethan: 270.6 cm/sec MV A max ethan: 2.2 cm/sec TR max P.3 mmHg MV E/A: 46.2 PA V2 max: 75.5 cm/sec Med Peak E' Ethan: 9.1 cm/sec PA V2 mean: 53.4 cm/sec E/E' med: 11.1 PA mean P.3 mmHg Lat Peak E' Ethan: 13.6 cm/sec PA pr(Accel): 44.7 mmHg E/E' lat: 7.4 E/e' average: 9.3 MV dec time: 0.15 sec MR ERO: 0.46 cm2 MR PISA: 5.8 cm2 SV(LVOT): 44.7 ml MR flow rate: 222.7 cm3/sec MR PISA radius: 0.96 cm Reading Physician:05:03 PM
== END ==
LOC: ECHO 13:39
PROVIDERS: PCP Family Medicine; Referring Provider Internal Medicine Cardiovascular Disease; Visit Provider Internal Medicine Cardiovascular Disease
DX: R06.09 Other forms of dyspnea (principal); I08.1 Rheumatic disorders of both mitral and tricuspid valves
CPT/HCPCS: 93306

== ENCOUNTER → 2023-06-15 11:32 | Outpatient (CLI) | payer MEDICARE, OTHER, SELFPAY ==
[2023-06-15 13:15] LABS: Blood Urea Nitrogen 23 mg/dL (9-20); Calcium 9.4 mg/dL (8.4-10.2); Carbon Dioxide 28 mmol/L (22-32); Chloride 100 mmol/L (98-107); Estimated Glomerular Filt Rate 46 mL/min (>60); Glucose 106 mg/dL (80-110); HEMOLYSIS 18 (0-50); Potassium 4.9 mmol/L (3.4-5.1); Sodium 133 mmol/L (137-145)
== END ==
PROVIDERS: PCP Family Medicine; Referring Provider Internal Medicine Cardiovascular Disease; Visit Provider Internal Medicine Cardiovascular Disease
DX: N18.30 Chronic kidney disease, stage 3 unspecified (principal)
CPT/HCPCS: 36415; 80048

== ENCOUNTER → 2023-10-29 09:47 | Outpatient (CLI) | payer MEDICARE, OTHER, SELFPAY | PROVIDERS: PCP Family Medicine; Referring Provider Urology; Visit Provider Urology | DX: R97.20 Elevated prostate specific antigen [PSA] (principal) | CPT/HCPCS: 36415; 84153 ==

== ENCOUNTER → 2024-05-03 11:42 | Outpatient (CLI) | payer MEDICARE, OTHER, SELFPAY ==
[2024-05-03 12:57] LABS: Prostate Specific Antigen 3.98 ng/mL (0.10-4.00)
== END ==
PROVIDERS: PCP Family Medicine; Referring Provider Urology; Visit Provider Urology
DX: N40.1 Benign prostatic hyperplasia with lower urinary tract symptoms (principal); R97.20 Elevated prostate specific antigen [PSA]; N13.8 Other obstructive and reflux uropathy
CPT/HCPCS: 36415; 84153

== ENCOUNTER → 2024-06-28 09:57 | Outpatient (CLI) | payer MEDICARE, OTHER, SELFPAY ==
--- NOTE | 2024-06-28 10:00 | DI.ECHO.S_ITS ---
[facility]---------+ [facility] : : [address] : [place] [address] : : [id number] : : Phone: [phone] Echocardiogram Report + + :Name: JUANA FLEMING Study Date: 06/28/2024 Height: 60 in : :Hospital ReadingLocation: Weight: 160 lb : : Gender: Male BSA: 1.7 m2 : :: 1945 Age: 79 yrs BP: 144/92 mmHg: :Reason For Study: MITRAL VALVE REGURGITATION : :Ordering Physician: GERMAN, : :AYAZ Performed By: Agustín Dowling : :Referring: AYAZ LIGHT : + + Interpretation Summary 1) Normal left ventricular size with mildly reduced systolic function (EF 45- 50%). 2) Basal inferior wall and basal to mid inferolateral wall are akinetic. Basal to mid anterolateral wall are hypokinetic. 3) Normal right ventricular size and function. 4) The right ventricular systolic pressure is estimated to be at least 43 mmHg based on an estimated right atrial pressure of 3 mm Hg. 5) Compared to the Echo done 06/04/2023, LVEF has decreased from 50-55% to 45- 50% on this study. Procedure: A two-dimensional transthoracic echocardiogram with color flow and Doppler was performed. The study quality was technically good. Comparison is made with the echocardiogram of 06/04/2023. The patient was in normal sinus rhythm during the exam. Left Ventricle: The left ventricle is normal in size. There is normal left ventricular wall thickness. There is no ventricular septal defect visualized. The ejection fraction is estimated to be 45-50%. Basal inferior wall and basal to mid inferolateral wall are akinetic. Basal to mid anterolateral wall are hypokinetic. Diastolic parameters suggest probable normal left ventricular diastolic function and normal filling pressures. Right Ventricle: The right ventricle is normal in size and function. Atria: The left atrium is moderately dilated. Right atrial size is normal. There is no Doppler evidence for an interatrial shunt. Mitral Valve: There is mild mitral annular calcification. The mitral valve leaflets appear normal. There is no evidence of stenosis, fluttering, or prolapse. There is moderate mitral regurgitation. Aortic Valve: The aortic valve is trileaflet. The aortic valve opens well. There is no aortic valve stenosis. No aortic regurgitation is present. Tricuspid Valve: The tricuspid valve leaflets are thin and pliable. There is trace tricuspid regurgitation. The right ventricular systolic pressure is estimated to be at least 43 mmHg based on an estimated right atrial pressure of 3 mm Hg. Pulmonic Valve: The pulmonic valve leaflets are thin and pliable; valve motion is normal. There is trace pulmonic regurgitation. Great Vessels: The aortic root is normal size. The dimensions of the ascending aorta are normal. The pulmonary artery is normal size. The IVC is of normal diameter and collapses greater than 50% with a sniff. This suggests a low right atrial pressure of 3 mm Hg. Pericardium/ Pleura There is no pericardial effusion. There is no pleural effusion. MMode/2D Measurements & Calculations LVIDd: 5.1 cm LVOT diam: 2.2 cm LVIDs: 3.8 cm Ao root diam: 3.3 cm FS: 25.1 % asc Aorta Diam: 3.3 cm EPSS: 0.68 cm Ao Arch Diam (Prox Trans): 2.2 cm IVSd: 0.88 cm LVPWd: 0.88 cm LV castillo. diameter/BSA (cm/m^2): 3.0 LV sys. diameter/BSA (cm/m^2): 2.3 LA A2 area: 19.9 cm2 RA long axis: 4.2 cm LA A4 area: 20.2 cm2 RA area: 9.7 cm2 LA length (vol): 5.5 cm RA vol: 19.3 ml LA vol: 62.2 ml RA : 11.4 ml/m2 LA vol index: 36.6 ml/m2 IVC diam: 1.7 cm RVD1 (basal): 3.3 cm RVD2 (mid): 2.9 cm TAPSE: 2.5 cm Doppler Measurements & Calculations Ao V2 max: 127.2 cm/sec LVOT Max [place]han: 81.6 cm/sec Ao V2 mean: 87.2 cm/sec LV V1 max P.7 mmHg Ao max P.5 mmHg LV V1 VTI: 20.3 cm Ao mean P.4 mmHg ANTONIO(I,D): 2.7 cm2 Ao V2 VTI: 29.2 cm ANTONIO(V,D): 2.5 cm2 sev ratio: 0.70 ANTONIO indexed to BSA (cm^2/m^2): 1.6 MV E max ethan: 109.0 cm/sec TR max ethan: 316.8 cm/sec MV A max ethan: 74.3 cm/sec TR max P.1 mmHg MV E/A: 1.5 PA V2 max: 58.2 cm/sec Med Peak E' Ethan: 6.6 cm/sec PA V2 mean: 45.5 cm/sec E/E' med: 16.4 PA mean P.87 mmHg Lat Peak E' Ethan: 7.3 cm/sec PA pr(Accel): 53.3 mmHg E/E' lat: 14.9 E/e' average: 15.7 MV dec time: 0.12 sec MR ERO: 0.19 cm2 MR PISA: 3.0 cm2 SV(LVOT): 77.6 ml MR flow rate: 111.9 cm3/sec MR PISA radius: 0.70 cm Reading Physician:04:49 PM
== END ==
LOC: ECHO 09:58
PROVIDERS: PCP Family Medicine; Referring Provider Family Medicine; Visit Provider Internal Medicine Cardiovascular Disease
DX: I34.81 Nonrheumatic mitral (valve) annulus calcification (principal); I34.0 Nonrheumatic mitral (valve) insufficiency
CPT/HCPCS: 93306

== ENCOUNTER → 2024-11-22 11:15 | Outpatient (CLI) | payer MEDICARE, OTHER, SELFPAY ==
[2024-11-22 13:38] LABS: Prostate Specific Antigen 4.28 ng/mL (0.10-4.00)
== END ==
PROVIDERS: PCP Family Medicine; Referring Provider Family Medicine; Visit Provider Urology
DX: R97.20 Elevated prostate specific antigen [PSA] (principal)
CPT/HCPCS: 84153

== ENCOUNTER → 2025-01-23 19:30 | Outpatient (CLI) | payer MEDICARE, OTHER, SELFPAY ==
--- NOTE | 2025-01-23 | DI.MRI.S_ITS ---
PROCEDURE: MR HEAD/BRAIN WO CON INDICATIONS: TIA TECHNIQUE: Non-contrast axial T1 spin echo, axial T2 fast spin echo, sagittal and axial FLAIR, coronal T2 fast spin echo, axial gradient echo, axial diffusion and ADC through the brain. COMPARISON: None. FINDINGS: Image quality: Excellent. CSF spaces: Ventricles appear symmetric in size and shape. Basal cisterns are patent. No extra-axial fluid collections. Brain: No intracranial bleeds or mass effects. There is cerebral volume loss for age. There are periventricular and deep white matter chronic small vessel ischemic changes. Brainstem appears normal. Diffusion-weighted images show no acute infarct. No chronic ischemic insults. Normal intravascular flow voids are present. Skull and face: Calvarial bone marrow is normal in signal. Orbits are normal. Sinuses: Sinuses and mastoids are clear. IMPRESSION: No acute or subacute infarct. No acute intracranial abnormalities. Age-related global volume loss and chronic microvascular ischemic changes. Dictated by: Zeyad Esquivel M.D. on 01/24/2025 at 8:14 Approved by: Zeyad Esquivel M.D. on 01/24/2025 at 8:26
== END ==
LOC: MRI 19:32
PROVIDERS: PCP Family Medicine; Referring Provider Family Medicine; Visit Provider Family Medicine
DX: G43.819 Other migraine, intractable, without status migrainosus (principal); G45.9 Transient cerebral ischemic attack, unspecified
CPT/HCPCS: 70551

== ENCOUNTER → 2025-02-08 14:02 | Outpatient (CLI) | payer MEDICARE, OTHER, SELFPAY ==
--- NOTE | 2025-02-08 14:03 | DI.US.S_ITS ---
PROCEDURE: US CAROTID DOPPLER BI INDICATIONS: TRANSIENT NEUROLOGICAL SYMPTOMS TECHNIQUE: Color and pulse Doppler interrogation was performed of both carotid systems, with image documentation and velocity measurements. COMPARISON: None. FINDINGS: Stenosis calculations are based on SRU (Society of Radiologists in Ultrasound) criteria. Right side: Common carotid artery peak systolic velocity: 69 cm/sec. Internal carotid artery peak systolic velocity: 93 cm/sec. Internal carotid artery end diastolic velocity: 19 cm/sec. External carotid artery peak systolic velocity: 95 cm/sec. ICA/CCA peak systolic ratio: 1.4 . Smith scale imaging description: Atherosclerotic plaques Percent internal carotid artery stenosis: Less than 50% . Vertebral artery: Flow direction is antegrade. Left side: Common carotid artery peak systolic velocity: 57 cm/sec. Internal carotid artery peak systolic velocity: 86 cm/sec. Internal carotid artery end diastolic velocity: 23 cm/sec. External carotid artery peak systolic velocity: 87 cm/sec. ICA/CCA peak systolic ratio: 1.5 . Smith scale imaging description: Atherosclerotic plaques Percent internal carotid artery stenosis: Less than 50% . Vertebral artery: Flow direction is antegrade. IMPRESSION: 1. In the right carotid artery, there is less than 50% stenosis based on peak systolic velocity criteria. 2. In the left carotid artery, there is less than 50% stenosis based on peak systolic velocity criteria. 3. Antegrade vertebral arteries. Dictated by: Zeyad Esquivel M.D. on 02/09/2025 at 8:32 Approved by: Zeyad Esquivel M.D. on 02/09/2025 at 8:34
--- NOTE | 2025-02-08 14:04 | DI.ECHO.S_ITS ---
[facility] +---------+ [facility] : : [address] : : [place] : : [id number] : : Phone: [phone] Echocardiogram Report + + :Name: JUANA FLEMING Study Date: 02/08/2025 Height: 61 in : :Hospital ReadingLocation: Weight: 160 lb : : Gender: Male BSA: 1.7 m2 : :: 1945 Age: 79 yrs BP: 140/93 mmHg: :Reason For Study: TIA : :Ordering Physician: Kel, : :Blossom HU Performed By: Rafael Bess : :Referring: Blossom Begum MD : + + Interpretation Summary 1) Normal left ventricular size with low normal systolic function (EF 50-55%). 2) Basal inferior wall and basal to mid inferolateral wall are akinetic. Basal to mid anterolateral wall are hypokinetic. 3) Normal right ventricular size and function. 4) There is moderate mitral regurgitation. 5) Doppler interrogation and injection of saline echo contrast shows no evidence for an interatrial shunt. 6) Compared to the Echo done 06/28/2024, LVEF has improved slightly from 45-50% to 50-55% on this study. Procedure: A two-dimensional transthoracic echocardiogram with color flow and Doppler was performed. The study quality was technically adequate. A saline contrast injection was performed to assess for cardiac shunting. Comparison is made with the echocardiogram of 06/28/2024. The heart rate ranged between 50-56 bpm during the study. Left Ventricle: The left ventricle is normal in size and wall thickness. The ejection fraction is estimated to be 50-55%. Basal inferior wall and basal to mid inferolateral wall are akinetic. Basal to mid anterolateral wall are hypokinetic. Grade I diastolic dysfunction with normal left atrial pressure. Right Ventricle: The right ventricle is normal in size and function. Atria: The left atrial size is normal. Right atrial size is normal. Bubble study was captured on image frame(s) # [id number]. Doppler interrogation and injection of saline echo contrast shows no evidence for an interatrial shunt. Bubble study performed per protocol, negative study with no bubbles seen in the left atrium or left ventricle. Mitral Valve: There is mild mitral annular calcification. The mitral valve leaflets appear to open well. There is no mitral valve stenosis. There is moderate mitral regurgitation. Aortic Valve: The aortic valve is trileaflet. The aortic valve opens well. There is no aortic valve stenosis. There is trace aortic regurgitation. Tricuspid Valve: The tricuspid valve leaflets are thin and pliable. There is mild tricuspid regurgitation. The right ventricular systolic pressure is estimated to be at least 34 mmHg based on an estimated right atrial pressure of 3 mm Hg. Pulmonic Valve: The pulmonic valve is not well seen, but is grossly normal. There is mild pulmonic regurgitation. Great Vessels: The aortic root is normal size. The ascending aorta is normal in size. The aortic arch could not be visualized. The pulmonary artery is not well visualized, but is probably normal size. The IVC is of normal diameter and collapses greater than 50% with a sniff. This suggests a low right atrial pressure of 3 mm Hg. Pericardium/ Pleura There is no pericardial effusion. MMode/2D Measurements & Calculations LVIDd: 5.2 cm LVOT diam: 2.4 cm LVIDs: 3.7 cm Ao root diam: 3.3 cm FS: 27.4 % asc Aorta Diam: 3.2 cm EPSS: 0.40 cm IVSd: 0.95 cm LVPWd: 0.90 cm LV castillo. diameter/BSA (cm/m^2): 3.0 LV sys. diameter/BSA (cm/m^2): 2.2 LA A2 area: 18.6 cm2 RA long axis: 5.1 cm LA A4 area: 17.1 cm2 RA area: 13.0 cm2 LA length (vol): 5.2 cm RA vol: 27.9 ml LA vol: 51.8 ml RA : 16.2 ml/m2 LA vol index: 30.2 ml/m2 IVC diam: 1.1 cm TAPSE: 2.2 cm Doppler Measurements & Calculations Ao V2 max: 127.2 cm/sec LVOT Max Ethan: 86.3 cm/sec Ao V2 mean: 83.7 cm/sec LV V1 max P.0 mmHg Ao max P.5 mmHg LV V1 VTI: 18.3 cm Ao mean P.3 mmHg ANTONIO(I,D): 3.0 cm2 Ao V2 VTI: 27.0 cm ANTONIO(V,D): 3.0 cm2 sev ratio: 0.68 ANTONIO indexed to BSA (cm^2/m^2): 1.7 MV E max ethan: 82.6 cm/sec TR max ethan: 278.8 cm/sec MV A max ethan: 97.9 cm/sec TR max P.3 mmHg MV E/A: 0.84 PA V2 max: 60.9 cm/sec MV dec time: 0.14 sec PA V2 mean: 42.3 cm/sec PA mean P.80 mmHg PA pr(Accel): 30.2 mmHg SV(LVOT): 79.7 ml Reading Physician:[id number] PM
--- NOTE | 2025-02-08 14:04 | DI.MRI.S_ITS ---
PROCEDURE: MR ANGIO HEAD WO CON INDICATIONS: transient neurological symptoms TECHNIQUE: Noncontrast axial 3-D [id number] MR angiogram, with 3-dimensional maximum intensity projection (MIP) reformats of the internal carotid arteries and posterior circulation then performed. COMPARISON: None. FINDINGS: Image quality: Excellent. Anterior circulation: Intracranial internal carotid arteries demonstrate normal size and intraluminal flow signal. The flow within the paired anterior cerebral arteries is normal and symmetric. The flow within the middle cerebral arteries is normal and symmetric. The anterior communicating artery is seen. No stenoses, occlusions, or aneurysms. Posterior circulation: Visualized portions of the vertebral arteries demonstrate normal caliber, and join to form a normal appearing basilar artery. The flow within the posterior cerebral arteries is normal and symmetric. No stenoses, occlusions, or aneurysms. IMPRESSION: Unremarkable MR angiogram of the brain Approved by: Adria Aponte M.D. on 02/08/2025 at 17:20
== END ==
PROVIDERS: PCP Family Medicine; Referring Provider Student in an Organized Health Care Education/Training Program; Visit Provider Student in an Organized Health Care Education/Training Program
DX: R29.818 Other symptoms and signs involving the nervous system (principal); I08.1 Rheumatic disorders of both mitral and tricuspid valves; I65.23 Occlusion and stenosis of bilateral carotid arteries
CPT/HCPCS: 70544; 93306; 93880